=== PATIENT | female | born 1945 | race Caucasian/White ===

== ENCOUNTER 2016-11-12 09:40 | Outpatient (CLI) | payer MEDICARE, OTHER ==
[2016-11-12 10:34] LABS: ALT (SGPT) 15 U/L (0-55); AST (SGOT) 18 U/L (5-34); Albumin 3.7 g/dL (3.4-4.8); Alkaline Phosphatase 87 U/L (40-150); Bilirubin, Direct 0.2 mg/dL (0.1-0.3); Bilirubin, Total 0.5 mg/dL (0.2-1.2); Cardiac Risk 3.4 (Less than 4.5); Cholesterol 199 mg/dL (< 200 Desired); HDL Cholesterol 58 mg/dL (>60 Neg Risk); LDL Cholesterol, Calculated 110 mg/dL; Protein, Total 6.8 g/dL (5.8-8.1); Triglycerides 153 mg/dL (Less than 150)
== END 2016-11-12 09:41 | disposition home or self-care (01) ==
LOC: MADLAB 09:40
PROVIDERS: ATTEND Internal Medicine Cardiovascular Disease
DX: E78.00 Pure hypercholesterolemia, unspecified (principal)
CPT/HCPCS: 36415; 80061; 80076

== ENCOUNTER 2017-03-26 09:20 | Emergency (ER) | payer MEDICARE, OTHER ==
[2017-03-26 10:52] LABS: #Basophils 0.2 thou/uL (0.0-0.2); #Eosinphils 0.2 thou/uL (0.0-0.7); #Lymphocytes 2.8 thou/uL (1.20-3.40); #Monocytes 0.5 thou/uL (0.11-0.59); #Neutrophils 11.9 thou/uL (1.40-6.50); %Eosinophils 1.2 % (0.0-10.0); %Lymphocytes 17.9 % (21.0-51.0); %Monocytes 3.2 % (0.0-10.0); %Neutrophils 76.7 % (42.0-75.0); Hemoglobin 12.3 g/dL (12.0-16.0); Mean Corpuscular HGB CONC 32.5 g/dL (32.0-36.0); Mean Corpuscular Hemoglobin 29.2 pg (27.0-31.0); Mean Platelet Volume 8.8 fL (7.4-10.4); Platelet Count 259 thou/uL (130-400); RBC Distribution Width 13.5 % (11.5-14.5); Red Blood Cell (RBC) Count 4.22 mill/uL (4.20-5.40); White Blood Cell (WBC) Count 15.5 thou/uL (4.8-10.8)
--- NOTE | 2017-03-26 10:56 | CT ---
CT HEAD WITHOUT CONTRAST: Technique: Multiple axial tomograms were obtained through the head without IV enhancement. History: Dizziness, hypertension. FINDINGS: Ventricles have normal size and position. There is no evidence of intracranial mass or hemorrhage. N o evidence of infarct. Mucosal thickening and possible air fluid level in the left sphenoid air cell is noted. The paranasa l sinuses and mastoids otherwise show normal aeration. IMPRESSION: 1. No acute intracranial abnormality. 2. Mucosal thickening and question air fluid level in a left sphenoid air cell. POS: [facility]
[2017-03-26 10:59] LABS: Anion Gap 16 mmol/L (10-20); BUN (Urea Nitrogen) 11 mg/dL (9.8-20.1); Calc. Creatinine Clearance 0 mL/min (70-130); Calcium 8.4 mg/dL (7.8-10.44); Carbon Dioxide 25 mmol/L (23-31); Chloride 101 mmol/L (98-107); Estimated GFR-MDRD 79; Glucose 89 mg/dL (83-110); Potassium 3.7 mmol/L (3.5-5.1); Sodium 138 mmol/L (136-145)
[2017-03-26 11:13] LABS: CKMB 1.1 ng/mL (0-6.6); Troponin I Less than 0.010 ng/mL (< 0.028)
[2017-03-26 11:30] LABS: Bilirubin Negative (Negative); Blood, Urine Negative (Negative); Clarity Clear (Clear); Glucose, Urine (Dipstick) Negative (Negative); Leukocyte Negative (Negative); Nitrite Negative (Negative); Protein, Urine (Dipstick) Negative (Neg-Trace); Urobilinogen 0.2 mg/dL (0.2-1.0)
== END 2017-03-26 11:55 | disposition short-term general hospital (02) ==
LOC: MADERS 09:20
DX: R42 Dizziness and giddiness (principal); E78.5 Hyperlipidemia, unspecified; E78.00 Pure hypercholesterolemia, unspecified; I10 Essential (primary) hypertension; F17.210 Nicotine dependence, cigarettes, uncomplicated; Z79.82 Long term (current) use of aspirin; Z79.899 Other long term (current) drug therapy
CPT/HCPCS: 36415; 70450; 80048; 81003; 82553; 83735; 84443; 84484; 85025; 93005

== ENCOUNTER 2017-06-11 12:24 | Outpatient (CLI) | payer MEDICARE, OTHER ==
[2017-06-11 13:06] LABS: ALT (SGPT) 21 U/L (8-55); AST (SGOT) 18 U/L (5-34); Albumin 3.5 g/dL (3.4-4.8); Alkaline Phosphatase 123 U/L (40-150); Anion Gap 16 mmol/L (10-20); BUN (Urea Nitrogen) 8 mg/dL (9.8-20.1); Bilirubin, Total 0.3 mg/dL (0.2-1.2); Calc. Creatinine Clearance 0 mL/min (70-130); Calcium 9.2 mg/dL (7.8-10.44); Carbon Dioxide 24 mmol/L (23-31); Cardiac Risk 3.7 (Less than 4.5); Chloride 99 mmol/L (98-107); Cholesterol 176 mg/dl (< 200 Desired); Estimated GFR-MDRD 77; Globulin 3.8 g/dL (2.4-3.5); Glucose 104 mg/dL (83-110); HDL Cholesterol 48 mg/dL (>60 Neg Risk); LDL Cholesterol, Calculated 109 mg/dL; Potassium 3.7 mmol/L (3.5-5.1); Protein, Total 7.3 g/dL (6.0-8.3); Sodium 135 mmol/L (136-145); Triglycerides 94 mg/dL (Less than 150)
[2017-06-11 13:15] LABS: #Basophils 0.2 thou/uL (0.0-0.2); #Eosinphils 0.2 thou/uL (0.0-0.7); #Lymphocytes 2.6 thou/uL (1.20-3.40); #Monocytes 0.5 thou/uL (0.11-0.59); #Neutrophils 6.1 thou/uL (1.40-6.50); %Basophils 1.9 % (0.0-1.0); %Eosinophils 2.2 % (0.0-10.0); %Lymphocytes 26.8 % (21.0-51.0); %Monocytes 5.4 % (0.0-10.0); %Neutrophils 63.6 % (42.0-75.0); Hemoglobin 12.6 g/dL (12.0-16.0); Mean Corpuscular HGB CONC 32.6 g/dL (32.0-36.0); Mean Corpuscular Hemoglobin 29.1 pg (27.0-31.0); Mean Corpuscular Volume 89.4 fl (81.0-99.0); Mean Platelet Volume 8.4 fL (7.4-10.4); Platelet Count 370 thou/uL (130-400); RBC Distribution Width 11.8 % (11.5-14.5); Red Blood Cell (RBC) Count 4.34 mill/uL (4.20-5.40); White Blood Cell (WBC) Count 9.6 thou/uL (4.8-10.8)
== END 2017-06-11 12:25 | disposition home or self-care (01) ==
LOC: MADLABBHPM 12:24
PROVIDERS: ATTEND Family Medicine
DX: R53.83 Other fatigue (principal)
CPT/HCPCS: 80053; 80061; 84443; 85025

== ENCOUNTER 2017-08-28 21:04 | Emergency (ER) | payer MEDICARE, OTHER ==
[2017-08-28] MEDS ORDERED: Magnesium Sulfate 2 GM/NS 0.9% 50 ML BAG ONE (21:22)
[2017-08-28] MEDS ORDERED: methylPREDNISolone Sod Succ/PF 125 MG/2 ML VIAL ONE (21:22)
--- NOTE | 2017-08-28 21:23 | RAD ---
CHEST ONE VIEW 08/28/17 HISTORY: Dyspnea. COMPARISON: 08/22/17 FINDINGS: The cardiac silhouette is magnified by projection. Pulmonary vasculature is unremarkable. Mediastinum is midline. There is no lobar consolidation or evidence of pneumothorax. IMPRESSION: No active cardiopulmonary abnormalities are demonstrated. POS: [facility]
[2017-08-28 22:51] LABS: #Basophils 0.1 thou/uL (0.0-0.2); #Eosinphils 0.1 thou/uL (0.0-0.7); #Lymphocytes 4.1 thou/uL (1.20-3.40); #Monocytes 1.1 thou/uL (0.11-0.59); #Neutrophils 9.7 thou/uL (1.40-6.50); %Basophils 0.6 % (0.0-1.0); %Eosinophils 0.4 % (0.0-10.0); %Lymphocytes 27.4 % (21.0-51.0); %Neutrophils 64.7 % (42.0-75.0); Hemoglobin 12.9 g/dL (12.0-16.0); Mean Corpuscular HGB CONC 33.7 g/dL (32.0-36.0); Mean Corpuscular Hemoglobin 30.2 pg (27.0-31.0); Mean Corpuscular Volume 89.6 fl (81.0-99.0); Mean Platelet Volume 8.8 fL (7.4-10.4); Platelet Count 308 thou/uL (130-400); RBC Distribution Width 13.1 % (11.5-14.5); Red Blood Cell (RBC) Count 4.27 mill/uL (4.20-5.40)
[2017-08-28 23:00] LABS: ALT (SGPT) 39 U/L (8-55); AST (SGOT) 32 U/L (5-34); Albumin 3.6 g/dL (3.4-4.8); Alkaline Phosphatase 98 U/L (40-150); Anion Gap 15 mmol/L (10-20); BUN (Urea Nitrogen) 11 mg/dL (9.8-20.1); Bilirubin, Total 0.4 mg/dL (0.2-1.2); Calc. Creatinine Clearance 0 mL/min (70-130); Carbon Dioxide 27 mmol/L (23-31); Chloride 99 mmol/L (98-107); Estimated GFR-MDRD 88; Globulin 3.6 g/dL (2.4-3.5); Glucose 120 mg/dL (83-110); Potassium 3.2 mmol/L (3.5-5.1); Protein, Total 7.2 g/dL (6.0-8.3); Sodium 138 mmol/L (136-145)
[2017-08-28 23:06] LABS: Troponin I Less than 0.010 ng/mL (< 0.028)
== END 2017-08-29 00:57 | disposition short-term general hospital (02) ==
LOC: MADERS 21:04
DX: J44.1 Chronic obstructive pulmonary disease with (acute) exacerbation (principal); E78.5 Hyperlipidemia, unspecified; I10 Essential (primary) hypertension; F17.210 Nicotine dependence, cigarettes, uncomplicated; Z79.82 Long term (current) use of aspirin; Z79.899 Other long term (current) drug therapy
CPT/HCPCS: 36415; 71010; 80053; 82553; 83880; 84484; 85025; 93005; 94640; 94760; 96365; 96366; 96375; J1956; J2930; J3475; J7620

== ENCOUNTER 2017-08-31 11:19 | Emergency (ER) | payer MEDICARE, OTHER | END 2017-08-31 12:03 | disposition home or self-care (01) | LOC: MADERS 11:19 | DX: J44.9 Chronic obstructive pulmonary disease, unspecified (principal); R79.89 Other specified abnormal findings of blood chemistry; E78.5 Hyperlipidemia, unspecified; I10 Essential (primary) hypertension; F41.9 Anxiety disorder, unspecified; F32.9 Major depressive disorder, single episode, unspecified; Z87.891 Personal history of nicotine dependence; Z79.82 Long term (current) use of aspirin; Z79.899 Other long term (current) drug therapy | CPT/HCPCS: 99284 ==

== ENCOUNTER 2017-09-29 20:21 | Emergency (ER) | payer MEDICARE, OTHER ==
[2017-09-29] MEDS ORDERED: Morphine 4 MG/ML VIAL ONE (21:09)
[2017-09-29 21:30] LABS: Bilirubin Negative (Negative); Blood, Urine Moderate (Negative); Glucose, Urine (Dipstick) Negative (Negative); Leukocyte Small (Negative); Nitrite Negative (Negative); Protein, Urine (Dipstick) Negative (Neg-Trace); Urobilinogen 0.2 mg/dL (0.2-1.0)
[2017-09-29 21:38] LABS: Bacteria/HPF 3+ HPF (None Seen); Clarity Hazy (Clear); Renal Epithelial 0-3 HPF (0-3); Transitional Epithelial 0-3 HPF (0-3)
--- NOTE | 2017-09-29 21:46 | CT ---
CT ABDOMEN NONCONTRAST CT PELVIS NONCONTRAST: (urolithiasis protocol) DATE: 09-29-17 TIME: 8:51 p.m. HISTORY: 72-year-old female with generalized abdominal pain. COMPARISON: None TECHNIQUE: IV injection of iodinated contrast media: none Oral contrast media: none FINDINGS: Other than for urolithiasis, the lack of IV and oral contrast limits the evaluation. At the posteromedial base of the left lower lobe, there is a 0.6 x 0.6 x 0.7 cm noncalcified pulmonar y nodule. There is diffusely low attenuation of the mckenzie of the splenic flexure, descending colon, m ost of the sigmoid colon, and rectum. There are air filled portions of the sigmoid colon that have no rmal, thin mckenzie. Therefore, it is doubtful that this represent colitis. Recommend clinical correlati on (is there recent diarrhea?). The sigmoid colon is redundant. No signs of acute colonic diverticuli tis. There is an approximately 8 x 5 x 3 cm collection of gas in the right lower quadrant anterior pe ritoneal cavity with no perceptible mckenzie. This almost has the appearance of extraluminal air, but it is probably within a distended portion of a very tortuous sigmoid colon. There is no surrounding fat stranding. There are no other regions of potentially extraluminal gas. There are no renal, ureteral, or bladder calculi. Urinary bladder is collapsed. No small bowel dilati on. No ascites. No pleural effusion. Heavy atherosclerotic calcification of non-aneurysmal abdominal aorta. Within limitations of a noncontrast scan, no gross abnormality is identified involving the kid neys, adrenals, pancreas, liver or spleen. Uterus is absent. The appendix is not identified with cert ainty. IMPRESSION: 1. A large collection of gas in the right lower quadrant of the abdominal cavity. The appearance is u nusual and probably represents intraluminal gas within a distended loop of very redundant sigmoid col on rather than representing extraluminal gas collection. 2. There is questionable edema within collapsed loops of the left colon, questionable for colitis. 3. No urolithiasis or obstructive uropathy. 4. Left lower lobe pulmonary nodule. Recommend six month follow up CT of the chest. LUIS ANTONIO Spivey POS: [facility]
[2017-09-29] MEDS ORDERED: Sulfameth/Trimethoprim DS 800-160mg TAB ONE (21:47)
== END 2017-09-29 22:07 | disposition home or self-care (01) ==
LOC: MADERS 20:21
DX: N39.0 Urinary tract infection, site not specified (principal); E78.5 Hyperlipidemia, unspecified; I10 Essential (primary) hypertension; J42 Unspecified chronic bronchitis; F17.210 Nicotine dependence, cigarettes, uncomplicated; F41.9 Anxiety disorder, unspecified; F32.9 Major depressive disorder, single episode, unspecified
CPT/HCPCS: 74176; 81003; 81015; 96374; J2270

== ENCOUNTER 2017-11-19 19:27 | Emergency (ER) | payer MEDICARE, OTHER ==
[~2017-11-19 19:27] MED LIST: Sodium Chloride 0.9% 100 ML BAG ONE
[2017-11-19] MEDS ORDERED: Magnesium Sulfate 2 GM/NS 0.9% 50 ML BAG ONE (20:57)
[2017-11-19] MEDS ORDERED: Dexamethasone 10 MG/ML VIAL ONE (20:57)
[2017-11-19] MEDS ORDERED: methylPREDNISolone Sod Succ/PF 125 MG/2 ML VIAL ONE (20:57)
[2017-11-19] MEDS ORDERED: Azithromycin 250 MG TAB ONE (20:57)
[2017-11-19] MEDS ORDERED: Benzonatate 100 MG CAP ONE (20:57)
[2017-11-19 21:13] LABS: Prothrombin Time 13.7 SEC (12.0-14.7)
[2017-11-19 21:14] LABS: PTT 32.1 SEC (22.9-36.1)
--- NOTE | 2017-11-19 21:17 | RAD ---
PORTABLE CHEST: 11/19/17 HISTORY: Dyspnea. COMPARISON: 08/28/17. The lungs are clear. The heart and mediastinum unremarkable. IMPRESSION: No acute finding or interval change noted. POS: [facility]
[2017-11-19 21:22] LABS: Eosinophils 15 % (0-10); Lymphocytes 23 % (21-51); MDiff Complete? YES; Mean Corpuscular HGB CONC 32.3 g/dL (32.0-36.0); Mean Corpuscular Hemoglobin 29.8 pg (27.0-31.0); Mean Corpuscular Volume 92.1 fl (81.0-99.0); Mean Platelet Volume 9.1 fL (7.4-10.4); Microcytosis SLIGHT = 6-15 cells (100X) (0-5/hpf); Monocytes 5 % (0-10); Neutrophil 53 % (42-75); PLT Morphology Comment Appears Adequate; Platelet Count 284 thou/uL (130-400); RBC Morphology Abnormal; Reactive Lymphocytes 3 % (0-10); Red Blood Cell (RBC) Count 4.38 mill/uL (4.20-5.40); White Blood Cell (WBC) Count 11.6 thou/uL (4.8-10.8)
[2017-11-19 21:25] LABS: ALT (SGPT) 16 U/L (8-55); AST (SGOT) 19 U/L (5-34); Albumin 3.5 g/dL (3.4-4.8); Alkaline Phosphatase 84 U/L (40-150); Anion Gap 16 mmol/L (10-20); BUN (Urea Nitrogen) 12 mg/dL (9.8-20.1); Bilirubin, Total 0.3 mg/dL (0.2-1.2); CK (CPK) 51 U/L (29-168); Calc. Creatinine Clearance 0 mL/min (70-130); Calcium 8.8 mg/dL (7.8-10.44); Carbon Dioxide 24 mmol/L (23-31); Chloride 103 mmol/L (98-107); Estimated GFR-MDRD 76; Globulin 3.4 g/dL (2.4-3.5); Glucose 102 mg/dL (83-110); Potassium 3.9 mmol/L (3.5-5.1); Protein, Total 6.9 g/dL (6.0-8.3); Sodium 139 mmol/L (136-145)
[2017-11-19 21:26] LABS: CKMB 1.3 ng/mL (0-6.6); Troponin I 0.018 ng/mL (< 0.028)
== END 2017-11-19 22:47 | disposition home or self-care (01) ==
LOC: MADERS 19:27
DX: J44.1 Chronic obstructive pulmonary disease with (acute) exacerbation (principal); E78.5 Hyperlipidemia, unspecified; F41.9 Anxiety disorder, unspecified; F32.9 Major depressive disorder, single episode, unspecified
CPT/HCPCS: 71045; 80053; 82553; 83880; 84484; 85025; 85610; 85730; 87081; 87430; 93005; 94640; 96365; 96367; 96375; J1100; J2930; J3475; J7050; J7620

== ENCOUNTER 2018-02-24 22:23 | Emergency (ER) | payer MEDICARE, OTHER ==
[2018-02-24] MEDS ORDERED: predniSONE 20 MG TAB ONE (23:13)
[2018-02-25 00:13] LABS: #Basophils 0.2 thou/uL (0.0-0.2); #Eosinphils 1.4 thou/uL (0.0-0.7); #Lymphocytes 3.5 thou/uL (1.20-3.40); #Monocytes 0.6 thou/uL (0.11-0.59); #Neutrophils 7.4 thou/uL (1.40-6.50); %Basophils 1.8 % (0.0-1.0); %Eosinophils 10.6 % (0.0-10.0); %Lymphocytes 26.7 % (21.0-51.0); %Monocytes 4.8 % (0.0-10.0); %Neutrophils 56.1 % (42.0-75.0); Mean Corpuscular HGB CONC 33.5 g/dL (32.0-36.0); Mean Corpuscular Hemoglobin 29.3 pg (27.0-31.0); Mean Corpuscular Volume 87.5 fl (81.0-99.0); Mean Platelet Volume 7.6 fL (7.4-10.4); Platelet Count 263 thou/uL (130-400); RBC Distribution Width 12.3 % (11.5-14.5); Red Blood Cell (RBC) Count 4.45 mill/uL (4.20-5.40); White Blood Cell (WBC) Count 13.2 thou/uL (4.8-10.8)
[2018-02-25 00:20] LABS: ALT (SGPT) 12 U/L (8-55); AST (SGOT) 18 U/L (5-34); Albumin 3.7 g/dL (3.4-4.8); Alkaline Phosphatase 87 U/L (40-150); Anion Gap 16 mmol/L (10-20); BUN (Urea Nitrogen) 8 mg/dL (9.8-20.1); Bilirubin, Total 0.2 mg/dL (0.2-1.2); Calc. Creatinine Clearance 0 mL/min (70-130); Calcium 9.6 mg/dL (7.8-10.44); Carbon Dioxide 26 mmol/L (23-31); Chloride 101 mmol/L (98-107); Estimated GFR-MDRD 76; Globulin 3.2 g/dL (2.4-3.5); Glucose 104 mg/dL (83-110); Protein, Total 6.9 g/dL (6.0-8.3); Sodium 139 mmol/L (136-145)
[2018-02-25 01:42] LABS: pH (venous) 7.39 (7.35-7.45)
[2018-02-25 01:43] LABS: Base Excess 4.7 mEq/L (-2 - +2); Hemoglobin (Hb) 13.6 g/dL (11.7-16.1)
--- NOTE | 2018-02-25 07:51 | RAD ---
AP VIEW OF CHEST: Date: 02/24/18 HISTORY: Shortness of breath. COMPARISON: Previous exam from 11/19/17. FINDINGS: AP view of chest demonstrates EKG leads seen over the chest. There is an electronic device over the l eft chest. The lungs are well aerated. Mild pulmonary vascular congestion seen. No evidence of effusi ons, pneumonia, or pneumothorax seen. IMPRESSION: Unremarkable AP view of chest. POS: [facility]
== END 2018-02-25 02:40 | disposition short-term general hospital (02) ==
LOC: MADERS 22:23
DX: J44.1 Chronic obstructive pulmonary disease with (acute) exacerbation (principal); I25.10 Atherosclerotic heart disease of native coronary artery without angina pectoris; I10 Essential (primary) hypertension; E78.5 Hyperlipidemia, unspecified; F32.9 Major depressive disorder, single episode, unspecified; F41.9 Anxiety disorder, unspecified; F17.210 Nicotine dependence, cigarettes, uncomplicated
CPT/HCPCS: 36415; 71045; 80053; 82805; 85025; J7506; J7620

== ENCOUNTER 2018-07-22 19:33 | Emergency (ER) | payer MEDICARE, OTHER ==
[2018-07-22 20:10] LABS: #Basophils 0.2 thou/uL (0.0-0.2); #Eosinphils 1.6 thou/uL (0.0-0.7); #Lymphocytes 2.6 thou/uL (1.20-3.40); #Monocytes 0.5 thou/uL (0.11-0.59); #Neutrophils 5.8 thou/uL (1.40-6.50); %Basophils 1.8 % (0.0-1.0); %Eosinophils 15.4 % (0.0-10.0); %Neutrophils 53.9 % (42.0-75.0); Hemoglobin 13.1 g/dL (12.0-16.0); Mean Corpuscular HGB CONC 32.7 g/dL (32.0-36.0); Mean Corpuscular Hemoglobin 29.1 pg (27.0-31.0); Mean Corpuscular Volume 89.2 fL (78.0-98.0); Mean Platelet Volume 8.3 fL (7.4-10.4); Platelet Count 323 thou/uL (130-400); RBC Distribution Width 12.4 % (11.5-14.5); Red Blood Cell (RBC) Count 4.49 mill/uL (4.20-5.40); White Blood Cell (WBC) Count 10.7 thou/uL (4.8-10.8)
[2018-07-22 20:16] LABS: Prothrombin Time 12.9 SEC (12.0-14.7)
--- NOTE | 2018-07-22 20:20 | RAD ---
PA AND LATERAL VIEWS OF THE CHEST: 07/22/18 HISTORY: COPD, shortness of breath. FINDINGS: Comparison is made with exam of 07/16/18. The heart size is normal. The lungs are well expanded without lobar consolidation, pneumothoraces or pleural effusions. There are degenerative changes in the spine. IMPRESSION: No acute process. POS: [facility]
[2018-07-22 20:28] LABS: ALT (SGPT) 17 U/L (8-55); AST (SGOT) 21 U/L (5-34); Albumin 3.9 g/dL (3.4-4.8); Alkaline Phosphatase 95 U/L (40-150); Anion Gap 15 mmol/L (10-20); BUN (Urea Nitrogen) 9 mg/dL (9.8-20.1); Bilirubin, Total 0.5 mg/dL (0.2-1.2); Calc. Creatinine Clearance 0 mL/min (70-130); Calcium 9.4 mg/dL (7.8-10.44); Carbon Dioxide 25 mmol/L (23-31); Chloride 104 mmol/L (98-107); Estimated GFR-MDRD 69; Globulin 3.4 g/dL (2.4-3.5); Glucose 87 mg/dL (83-110); Potassium 3.7 mmol/L (3.5-5.1); Protein, Total 7.3 g/dL (6.0-8.3); Sodium 140 mmol/L (136-145)
[2018-07-22] MEDS ORDERED: methylPREDNISolone Sod Succ/PF 125 MG/2 ML VIAL ONE (21:22)
[2018-07-22] MEDS ORDERED: Azithromycin 250 MG TAB ONE (21:22)
[2018-07-22] MEDS ORDERED: Ondansetron HCl/PF 4 MG/2 ML Vial ONE (21:29)
== END 2018-07-22 23:12 | disposition short-term general hospital (02) ==
LOC: MADERS 19:33
DX: J44.1 Chronic obstructive pulmonary disease with (acute) exacerbation (principal); I25.10 Atherosclerotic heart disease of native coronary artery without angina pectoris; I10 Essential (primary) hypertension; F32.9 Major depressive disorder, single episode, unspecified; F41.9 Anxiety disorder, unspecified; F17.210 Nicotine dependence, cigarettes, uncomplicated; E78.5 Hyperlipidemia, unspecified; Z79.899 Other long term (current) drug therapy; Z79.01 Long term (current) use of anticoagulants
CPT/HCPCS: 71046; 80053; 83880; 84484; 85025; 85610; 93005; 96374; 96375; J2405; J2930; J7620

== ENCOUNTER 2019-10-20 10:46 | Outpatient (CLI) | payer MEDICARE, OTHER ==
--- NOTE | 2019-10-20 11:11 | RAD ---
EXAM: Two views chest PROVIDED CLINICAL HISTORY: Dyspnea COMPARISON: 05/28/2019 FINDINGS: Cardiac and mediastinal silhouette is unchanged in appearance. Lungs appear free of significant opaci ty. No pleural fluid or pneumothorax apparent. IMPRESSION: No evidence for an acute cardiopulmonary process.
== END 2019-10-20 10:47 | disposition home or self-care (01) ==
LOC: MADRAD 10:46
PROVIDERS: ATTEND Internal Medicine Critical Care Medicine
DX: R06.00 Dyspnea, unspecified (principal)
CPT/HCPCS: 71046

== ENCOUNTER 2020-11-22 12:13 | Outpatient (CLI) | payer MEDICARE, OTHER ==
--- NOTE | 2020-11-22 12:46 | RAD ---
XR Chest Pa Lat STANDARD History: Hypertension Comparison: Radiograph October 20, 2019 Findings: Lungs are clear. No pneumothorax or effusion. Cardiac silhouette and mediastinal contours a re within normal limits. No acute osseous abnormality. Impression: No acute intrathoracic abnormality.
[2020-11-22 13:43] LABS: #Basophils 0.1 thou/uL (0.0-0.2); #Lymphocytes 1.2 thou/uL (1.20-3.40); #Monocytes 0.5 thou/uL (0.11-0.59); #Neutrophils 13.5 thou/uL (1.40-6.50); %Basophils 0.6 % (0.0-1.0); %Eosinophils 0.2 % (0.0-10.0); %Lymphocytes 7.7 % (21.0-51.0); %Neutrophils 88.5 % (42.0-75.0); Hemoglobin 12.5 g/dL (12.0-16.0); Mean Corpuscular HGB CONC 32.1 g/dL (32.0-36.0); Mean Corpuscular Hemoglobin 28.4 pg (27.0-31.0); Mean Corpuscular Volume 88.2 fL (78.0-98.0); Mean Platelet Volume 8.3 fL (7.4-10.4); Platelet Count 292 thou/uL (130-400); RBC Distribution Width 13.4 % (11.5-14.5); Red Blood Cell (RBC) Count 4.39 mill/uL (4.20-5.40); White Blood Cell (WBC) Count 15.3 thou/uL (4.8-10.8)
[2020-11-22 14:05] LABS: ALT (SGPT) 16 U/L (8-55); AST (SGOT) 18 U/L (5-34); Albumin 3.7 g/dL (3.4-4.8); Alkaline Phosphatase 79 U/L (40-110); Anion Gap 16 mmol/L (10-20); BUN (Urea Nitrogen) 12 mg/dL (9.8-20.1); Bilirubin, Total 0.4 mg/dL (0.2-1.2); Calc. Creatinine Clearance 0 mL/min (70-130); Calcium 8.5 mg/dL (7.8-10.44); Carbon Dioxide 26 mmol/L (23-31); Cardiac Risk 1.6 (Less than 4.5); Chloride 105 mmol/L (98-107); Cholesterol 157 mg/dl (< 200 Desired); Globulin 2.2 g/dL (2.4-3.5); Glucose 92 mg/dL (83-110); HDL Cholesterol 96 mg/dL (>60 Neg Risk); LDL Cholesterol, Calculated 45 mg/dL; Potassium 3.9 mmol/L (3.5-5.1); Protein, Total 5.9 g/dL (5.8-8.1); Sodium 143 mmol/L (136-145); Triglycerides 80 mg/dL (Less than 150)
[2020-11-22 17:02] LABS: Hemoglobin A1c 5.6 % (4.0-6.0)
== END 2020-11-22 12:14 | disposition home or self-care (01) ==
LOC: MADRAD 12:13
PROVIDERS: ATTEND Family Medicine
DX: I10 Essential (primary) hypertension (principal); E78.2 Mixed hyperlipidemia; E66.9 Obesity, unspecified
CPT/HCPCS: 36415; 71046; 80053; 80061; 83036; 84443; 85025

== ENCOUNTER 2021-06-22 07:46 | Emergency (ER) | payer MEDICARE, OTHER ==
[2021-06-22] MEDS ORDERED: Boostrix 0.5 ML (Tdap) VIAL ONE (09:22)
[2021-06-22] MEDS ORDERED: Acetaminophen 325 MG TAB ONE (09:22)
[2021-06-22] MEDS ORDERED: Fentanyl 100 MCG/2 ML VIAL ONE (09:22)
[2021-06-22 09:31] LABS: Hemoglobin 11.6 g/dL (12.0-16.0); Mean Corpuscular HGB CONC 31.6 g/dL (32.0-36.0); Mean Corpuscular Hemoglobin 28.2 pg (27.0-31.0); Mean Corpuscular Volume 89.3 fL (78.0-98.0); Mean Platelet Volume 8.4 fL (7.4-10.4); Platelet Count 305 thou/uL (130-400); RBC Distribution Width 14.3 % (11.5-14.5); Red Blood Cell (RBC) Count 4.09 mill/uL (4.20-5.40)
[2021-06-22 09:39] LABS: ALT (SGPT) 19 U/L (8-55); AST (SGOT) 19 U/L (5-34); Albumin 3.5 g/dL (3.4-4.8); Alkaline Phosphatase 91 U/L (40-110); Anion Gap 13 mmol/L (10-20); BUN (Urea Nitrogen) 11 mg/dL (9.8-20.1); Bilirubin, Total 0.3 mg/dL (0.2-1.2); CK (CPK) 54 U/L (29-168); Calc. Creatinine Clearance 0 mL/min (70-130); Calcium 9.3 mg/dL (7.8-10.44); Carbon Dioxide 26 mmol/L (23-31); Chloride 102 mmol/L (98-107); Globulin 2.8 g/dL (2.4-3.5); Glucose 133 mg/dL (83-110); Protein, Total 6.3 g/dL (5.8-8.1); Sodium 137 mmol/L (136-145)
[2021-06-22 09:46] LABS: Manual Diff?? YES
[2021-06-22 09:47] LABS: Anisocytosis SLIGHT = 6-15 cells (100X) (0-5/hpf); Band 3 % (5-11); Eosinophils 1 % (0-10); Lymphocytes 10 % (21-51); MDiff Complete? YES; Monocytes 4 % (0-10); Neutrophil 82 % (42-75); Platelet Morphology Comment Appears Adequate
[2021-06-22] MEDS ORDERED: Albuterol Sulfate 2.5 mg/0.5 ml Neb ONE (09:59)
[2021-06-22] MEDS ORDERED: Ipratropium Bromide 2.5 ml Neb ONE (09:59)
[2021-06-22] MEDS ORDERED: Nitroglycerin 0.4 MG TAB 1 EACH ONE (11:55)
[2021-06-22] MEDS ORDERED: Aspirin Chewable 81 MG TAB ONE (11:55)
[2021-06-22 12:58] LABS: Bilirubin Negative (Negative); Blood, Urine Small (Negative); Clarity Clear (Clear); Glucose, Urine (Dipstick) Negative (Negative); Ketone, Urine Negative (Negative); Leukocyte Negative (Negative); Nitrite Negative (Negative); Protein, Urine (Dipstick) 30 mg/dL (Neg-Trace); Urobilinogen 0.2 mg/dL (Less than 2)
[2021-06-22 12:59] LABS: Bacteria/HPF 1+ HPF (None Seen); WBC/HPF 0-3 HPF (0-3)
== END 2021-06-22 13:45 | disposition home or self-care (01) ==
LOC: MADERS 07:46
DX: S51.812A Laceration without foreign body of left forearm, initial encounter (principal); J44.1 Chronic obstructive pulmonary disease with (acute) exacerbation; R60.0 Localized edema; I25.10 Atherosclerotic heart disease of native coronary artery without angina pectoris; I10 Essential (primary) hypertension; E78.5 Hyperlipidemia, unspecified; E78.00 Pure hypercholesterolemia, unspecified; Z87.891 Personal history of nicotine dependence; Z79.82 Long term (current) use of aspirin; Z79.899 Other long term (current) drug therapy; Z23 Encounter for immunization; W19.XXXA Unspecified fall, initial encounter
CPT/HCPCS: 70450; 71045; 72125; 80053; 81003; 81015; 82550; 83880; 84484; 85025; 90471; 90715; 93005; 96374; J3010; J7611

== ENCOUNTER 2021-06-30 20:53 | Emergency (ER) | payer MEDICARE, OTHER ==
[2021-06-30] MEDS ORDERED: cefTRIAXone\\ROCEPHIN 1 GM VIAL ONE (21:49)
[2021-06-30] MEDS ORDERED: Sodium Chloride 0.9% 1,000 ML ONE ×2 (21:49→23:17)
[2021-06-30] MEDS ORDERED: Sodium Chloride 0.9% 100 ML ONE ×2 (21:49→23:17)
[2021-06-30 22:20] LABS: #Basophils 0.1 thou/uL (0.0-0.2); #Lymphocytes 0.8 thou/uL (1.20-3.40); #Monocytes 0.6 thou/uL (0.11-0.59); #Neutrophils 13.4 thou/uL (1.40-6.50); %Basophils 0.6 % (0.0-1.0); %Lymphocytes 5.4 % (21.0-51.0); %Monocytes 3.8 % (0.0-10.0); %Neutrophils 90.1 % (42.0-75.0); Hemoglobin 11.6 g/dL (12.0-16.0); Mean Corpuscular HGB CONC 31.7 g/dL (32.0-36.0); Mean Corpuscular Hemoglobin 27.7 pg (27.0-31.0); Mean Corpuscular Volume 87.4 fL (78.0-98.0); Mean Platelet Volume 6.4 fL (7.4-10.4); Platelet Count 493 thou/uL (130-400); RBC Distribution Width 13.1 % (11.5-14.5); Red Blood Cell (RBC) Count 4.17 mill/uL (4.20-5.40); White Blood Cell (WBC) Count 14.8 thou/uL (4.8-10.8)
[2021-06-30 22:29] LABS: ALT (SGPT) 13 U/L (8-55); AST (SGOT) 13 U/L (5-34); Albumin 3.5 g/dL (3.4-4.8); Alkaline Phosphatase 100 U/L (40-110); Anion Gap 18 mmol/L (10-20); BUN (Urea Nitrogen) 45 mg/dL (9.8-20.1); Bilirubin, Total 0.2 mg/dL (0.2-1.2); CK (CPK) 24 U/L (29-168); Calc. Creatinine Clearance 0 mL/min (70-130); Calcium 9.6 mg/dL (7.8-10.44); Carbon Dioxide 31 mmol/L (23-31); Chloride 89 mmol/L (98-107); Globulin 2.2 g/dL (2.4-3.5); Glucose 137 mg/dL (83-110); Lipase 31 U/L (8-78); Potassium 3.5 mmol/L (3.5-5.1); Protein, Total 5.7 g/dL (5.8-8.1); Sodium 134 mmol/L (136-145)
[2021-06-30] MEDS ORDERED: Doxycycline Hyclate 100 MG VIAL ONE (23:14)
[2021-07-01 07:23] LABS: Bilirubin Negative (Negative); Blood, Urine Trace (Negative); Clarity Clear (Clear); Glucose, Urine (Dipstick) Negative (Negative); Ketone, Urine Negative (Negative); Leukocyte Moderate (Negative); Nitrite Negative (Negative); Protein, Urine (Dipstick) Negative (Neg-Trace); Urobilinogen 0.2 mg/dL (Less than 2)
[2021-07-01 07:26] LABS: Bacteria/HPF None Seen HPF (None Seen); RBC/HPF 0-3 HPF (0-3); Squamous Epithelial 0-3 HPF (0-3)
== END 2021-07-01 08:02 | disposition home or self-care (01) ==
LOC: MADERS 20:53
DX: A41.9 Sepsis, unspecified organism (principal); J44.1 Chronic obstructive pulmonary disease with (acute) exacerbation; N30.00 Acute cystitis without hematuria; I10 Essential (primary) hypertension; I25.10 Atherosclerotic heart disease of native coronary artery without angina pectoris; E78.5 Hyperlipidemia, unspecified; E78.00 Pure hypercholesterolemia, unspecified; F17.210 Nicotine dependence, cigarettes, uncomplicated; Z79.82 Long term (current) use of aspirin; Z79.52 Long term (current) use of systemic steroids; Z79.899 Other long term (current) drug therapy
CPT/HCPCS: 71045; 71250; 80053; 81003; 81015; 82550; 83605; 83690; 84443; 84484; 85025; 87040; 87086; 93005; 96365; 96367; J0696; J3490; J7050; J7620

== ENCOUNTER 2021-08-08 11:28 | Outpatient (CLI) | payer MEDICARE, OTHER | END 2021-08-08 11:29 | disposition home or self-care (01) | LOC: MADRAD 11:28 | PROVIDERS: ATTEND Family Medicine | DX: Z13.31 Encounter for screening for depression (principal); S22.31XA Fracture of one rib, right side, initial encounter for closed fracture | CPT/HCPCS: 71046 ==

== ENCOUNTER 2021-08-09 12:14 | Outpatient (CLI) | payer MEDICARE, OTHER | END 2021-08-09 12:15 | disposition home or self-care (01) | LOC: MADLAB 12:14 | PROVIDERS: ATTEND Family Medicine | DX: M54.6 Pain in thoracic spine (principal) | CPT/HCPCS: 72070; 72100 ==

== ENCOUNTER 2021-11-07 11:23 | Outpatient (CLI) | payer MEDICARE, OTHER | END 2021-11-07 11:24 | disposition home or self-care (01) | LOC: MADLAB 11:23 → MADRAD 11:24 | PROVIDERS: ATTEND Family Medicine | DX: M54.9 Dorsalgia, unspecified (principal); M47.816 Spondylosis without myelopathy or radiculopathy, lumbar region; G95.20 Unspecified cord compression | CPT/HCPCS: 72100 ==

== ENCOUNTER 2021-11-17 05:33 | Emergency (ER) | payer MEDICARE, OTHER ==
[2021-11-17 05:59] LABS: #Basophils 0.1 thou/uL (0.0-0.2); #Lymphocytes 1.8 thou/uL (1.20-3.40); #Monocytes 0.9 thou/uL (0.11-0.59); #Neutrophils 10.1 thou/uL (1.40-6.50); %Basophils 0.9 % (0.0-1.0); %Monocytes 6.7 % (0.0-10.0); %Neutrophils 78.5 % (42.0-75.0); Hemoglobin 12.6 g/dL (12.0-16.0); Mean Corpuscular HGB CONC 31.7 g/dL (32.0-36.0); Mean Corpuscular Hemoglobin 26.9 pg (27.0-31.0); Mean Corpuscular Volume 84.9 fL (78.0-98.0); Mean Platelet Volume 7.5 fL (7.4-10.4); Platelet Count 337 thou/uL (130-400); RBC Distribution Width 14.5 % (11.5-14.5); Red Blood Cell (RBC) Count 4.69 mill/uL (4.20-5.40); White Blood Cell (WBC) Count 12.9 thou/uL (4.8-10.8)
[2021-11-17 06:18] LABS: Magnesium 1.8 mg/dL (1.6-2.6)
[2021-11-17 06:20] LABS: ALT (SGPT) Less than 7 U/L (8-55); AST (SGOT) 17 U/L (5-34); Albumin 3.4 g/dL (3.4-4.8); Alkaline Phosphatase 106 U/L (40-110); Anion Gap 15 mmol/L (10-20); BUN (Urea Nitrogen) 9 mg/dL (9.8-20.1); Bilirubin, Total 0.5 mg/dL (0.2-1.2); Calc. Creatinine Clearance 0 mL/min (70-130); Carbon Dioxide 24 mmol/L (23-31); Chloride 101 mmol/L (98-107); Globulin 2.8 g/dL (2.4-3.5); Glucose 114 mg/dL (83-110); Potassium 3.3 mmol/L (3.5-5.1); Protein, Total 6.2 g/dL (5.8-8.1); Sodium 137 mmol/L (136-145)
[2021-11-17] MEDS ORDERED: HYDROcodone/Acetaminophen 5/325 mg Tablet ONE (06:35)
[2021-11-17] MEDS ORDERED: Potassium Chloride 10 MEQ TAB ONE (06:36)
== END 2021-11-17 07:42 | disposition home or self-care (01) ==
LOC: MADERS 05:33
DX: J44.1 Chronic obstructive pulmonary disease with (acute) exacerbation (principal); E87.6 Hypokalemia; R00.0 Tachycardia, unspecified; I10 Essential (primary) hypertension; I25.10 Atherosclerotic heart disease of native coronary artery without angina pectoris; E78.5 Hyperlipidemia, unspecified; E78.00 Pure hypercholesterolemia, unspecified; Z76.0 Encounter for issue of repeat prescription; Z87.891 Personal history of nicotine dependence; Z79.82 Long term (current) use of aspirin; Z79.899 Other long term (current) drug therapy
CPT/HCPCS: 71045; 80053; 83735; 83880; 84484; 85025; 93005

== ENCOUNTER → 2022-10-22 | Emergency (ER) | payer MEDICARE, OTHER ==
[~2022-10-22] MED LIST changes: +Aspirin Chewable 81 MG TAB ONE; +Escitalopram Oxalate 10 mg Tablet PO SCH; +Iopamidol 370 76% 100 ML VIAL ONE; +Ipratropium/Albuterol 3 ML NEB ONE; -Sodium Chloride 0.9% 100 ML BAG ONE; +Sodium Chloride 0.9% 500 ML ONE; +methylPREDNISolone Sod Succ/PF 125 MG/2 ML VIAL ONE
[2022-10-22 14:07] LABS: #Basophils 0.1 thou/uL (0.0-0.2); #Eosinphils 0.1 thou/uL (0.0-0.7); #Lymphocytes 0.9 thou/uL (1.20-3.40); #Monocytes 0.5 thou/uL (0.11-0.59); #Neutrophils 14.9 thou/uL (1.40-6.50); %Basophils 0.7 % (0.0-1.0); %Eosinophils 0.3 % (0.0-10.0); %Lymphocytes 5.3 % (21.0-51.0); %Monocytes 2.8 % (0.0-10.0); %Neutrophils 90.8 % (42.0-75.0); Hemoglobin 12.5 g/dL (12.0-16.0); Mean Corpuscular HGB CONC 32.9 g/dL (32.0-36.0); Mean Corpuscular Hemoglobin 28.1 pg (27.0-31.0); Mean Corpuscular Volume 85.6 fl (78.0-98.0); Mean Platelet Volume 8.9 fL (7.4-10.4); Platelet Count 279 10x3/uL (130-400); RBC Distribution Width 13.5 % (11.5-14.5); Red Blood Cell (RBC) Count 4.45 mill/uL (4.20-5.40); White Blood Cell (WBC) Count 16.4 10x3/uL (4.8-10.8)
[2022-10-22 14:13] LABS: ALT (SGPT) 29 U/L (8-55); AST (SGOT) 27 U/L (5-34); Albumin 3.7 g/dL (3.4-4.8); Alkaline Phosphatase 87 U/L (40-110); Anion Gap 16 mmol/L (10-20); BUN (Urea Nitrogen) 13 mg/dL (9.8-20.1); Bilirubin, Total 0.5 mg/dL (0.2-1.2); Calc. Creatinine Clearance 0 mL/min (70-130); Calcium 9.4 mg/dL (7.8-10.44); Carbon Dioxide 30 mmol/L (23-31); Chloride 98 mmol/L (98-107); Estimated GFR 65; Glucose 116 mg/dL (83-110); Magnesium 2.1 mg/dL (1.6-2.6); Potassium 3.5 mmol/L (3.5-5.1); Protein, Total 6.7 g/dL (5.8-8.1); Sodium 140 mmol/L (136-145)
[2022-10-22 14:18] LABS: Base Excess-Venous 7.7 mmol/L (-2.0 to 3.0); Bicarbonate (HCO3v) 30.8 mmol/L (22.0-28.0); CO2 Tension (PvCO2) 37.1 mmHg (42.0-51.0); Calcium, Ionized 0.96 mmol/L (1.15-1.33); Chloride 99 mmol/L (98-107); Hemoglobin - Calc 14.5 g/dL (12.0-16.0); Potassium 3.4 mmol/L (3.5-5.1); Sodium 138 mmol/L (138-145); T. Carbon Dioxide 31.9 mmol/L (22.0-28.0); vO2 Saturation-calc 96.4 % (60.0-85.0)
[2022-10-22 17:07] LABS: SARS-CoV-2 NAA Rapid Test Not Detected (NotDetected)
== END ==
LOC: MADERS 13:11
DX: J44.1 Chronic obstructive pulmonary disease with (acute) exacerbation (principal); Z20.822 Contact with and (suspected) exposure to COVID-19; I25.10 Atherosclerotic heart disease of native coronary artery without angina pectoris; E78.00 Pure hypercholesterolemia, unspecified; I11.0 Hypertensive heart disease with heart failure; I50.9 Heart failure, unspecified; Z79.899 Other long term (current) drug therapy; Z79.82 Long term (current) use of aspirin; Z87.891 Personal history of nicotine dependence
CPT/HCPCS: 36415; 71045; 71275; 80053; 82330; 82803; 83605; 83690; 83735; 83880; 85014; 85025; 87040; 93005; 96374; 96376; J2930; J7030; J7620; Q9967

== ENCOUNTER 2022-12-28 17:19 | Inpatient (IN) | payer MEDICARE, OTHER ==
[2022-12-28] MEDS ORDERED: HYDROcodone/Acetaminophen 5/325 mg Tablet PO PRN ×2 (17:22→17:28)
[2022-12-28] MEDS ORDERED: Bisacodyl 5 MG TAB PO PRN (17:25)
[2022-12-28] MEDS ORDERED: Ondansetron ODT 4 MG TAB SL PRN (17:25)
[2022-12-28] MEDS ORDERED: Arformoterol 15 MCG/2 ML NEB NEB SCH (19:00)
[2022-12-28] MEDS ORDERED: Budesonide 0.5 MG/2 ML NEB NEB SCH (19:00)
[2022-12-28] MEDS ORDERED: Temazepam 15 MG CAP PO SCH (21:00)
[2022-12-28] MEDS: Rosuvastatin 10 MG TAB PO SCH (21:49)
[2022-12-28] MEDS: Famotidine 20 MG TAB PO SCH (21:49)
[2022-12-28] MEDS: Apixaban 5 MG TAB PO SCH (21:49)
[2022-12-28] MEDS: Nicotine 7 MG PATCH TD SCH (21:49)
[2022-12-28] MEDS: Ipratropium/Albuterol 3 ML NEB NEB SCH (21:52)
[2022-12-28] MEDS: Arformoterol 15 MCG/2 ML NEB NEB SCH (21:54)
[2022-12-28] MEDS: Budesonide 0.5 MG/2 ML NEB NEB SCH (21:55)
[2022-12-28] MEDS: Temazepam 15 MG CAP PO SCH (21:56)
[2022-12-28] MEDS: Senokot S 8.6-50 MG TAB PO PRN (23:01)
[2022-12-29] MEDS: Ipratropium/Albuterol 3 ML NEB NEB SCH ×6 (00:54→21:33)
[2022-12-29 06:01] LABS: ALT (SGPT) 63 U/L (8-55); AST (SGOT) 23 U/L (5-34); Albumin 3.3 g/dL (3.4-4.8); Alkaline Phosphatase 110 U/L (40-110); Anion Gap 10 mmol/L (10-20); BUN (Urea Nitrogen) 33 mg/dL (9.8-20.1); Bilirubin, Total 0.3 mg/dL (0.2-1.2); Calc. Creatinine Clearance 68 mL/min (70-130); Calcium 8.5 mg/dL (7.8-10.44); Carbon Dioxide 31 mmol/L (23-31); Chloride 105 mmol/L (98-107); Estimated GFR 73; Globulin 2.2 g/dL (2.4-3.5); Glucose 112 mg/dL (83-110); Potassium 3.5 mmol/L (3.5-5.1); Protein, Total 5.5 g/dL (5.8-8.1)
[2022-12-29 06:03] LABS: Band 1 % (5-11); Eosinophils 1 % (0-10); Hemoglobin 11.8 g/dL (12.0-16.0); Lymphocytes 4 % (21-51); MDiff Complete? YES; Mean Corpuscular HGB CONC 33.6 g/dL (32.0-36.0); Mean Corpuscular Hemoglobin 27.2 pg (27.0-31.0); Monocytes 7 % (0-10); Neutrophil 87 % (42-75); Platelet Count 209 10x3/uL (130-400); RBC Distribution Width 14.3 % (11.5-14.5); Red Blood Cell (RBC) Count 4.32 mill/uL (4.20-5.40); White Blood Cell (WBC) Count 26.5 10x3/uL (4.8-10.8)
[2022-12-29 06:08] LABS: Sodium 142 mmol/L (136-145)
[2022-12-29] MEDS ORDERED: Non-Formulary Item 1 EACH (Icosapent Ethyl 1 GM Capsule) PO SCH (08:00)
[2022-12-29] MEDS ORDERED: Diltiazem HCl SR 60 mg Capsule PO SCH (09:00)
[2022-12-29] MEDS ORDERED: DILTIAZEM HCL 300 MG PO SCH ×2 (09:00)
[2022-12-29] MEDS ORDERED: Non-Formulary Item 1 EACH (Losartan Potassium [Losartan Potassium] 100 MG Tablet) PO SCH (09:00)
[2022-12-29] MEDS ORDERED: Diltiazem HCl SR 90 mg Capsule PO SCH (09:00)
[2022-12-29] MEDS: Budesonide 0.5 MG/2 ML NEB NEB SCH ×2 (09:04→21:34)
[2022-12-29] MEDS: Arformoterol 15 MCG/2 ML NEB NEB SCH ×2 (09:04→21:32)
[2022-12-29] MEDS: Furosemide 20 MG TAB PO SCH (09:05)
[2022-12-29] MEDS: predniSONE 20 MG TAB PO SCH (09:05)
[2022-12-29] MEDS: Apixaban 5 MG TAB PO SCH ×2 (09:05→21:29)
[2022-12-29] MEDS: Escitalopram Oxalate 10 mg Tablet PO SCH (09:05)
[2022-12-29] MEDS: Famotidine 20 MG TAB PO SCH ×2 (09:05→21:29)
[2022-12-29] MEDS: Rosuvastatin 10 MG TAB PO SCH (21:29)
[2022-12-29] MEDS: Temazepam 15 MG CAP PO SCH (21:30)
[2022-12-29] MEDS: Senokot S 8.6-50 MG TAB PO PRN (21:39)
[2022-12-29] MEDS: Nicotine 7 MG PATCH TD SCH (21:39)
[2022-12-30] MEDS: Ipratropium/Albuterol 3 ML NEB NEB SCH ×6 (00:46→22:04)
[2022-12-30] MEDS: Apixaban 5 MG TAB PO SCH ×2 (08:52→22:03)
[2022-12-30] MEDS: Furosemide 20 MG TAB PO SCH (08:52)
[2022-12-30] MEDS: predniSONE 20 MG TAB PO SCH (08:52)
[2022-12-30] MEDS: Famotidine 20 MG TAB PO SCH ×2 (08:52→22:03)
[2022-12-30] MEDS: Acetaminophen 325 MG TAB PO PRN (08:53)
[2022-12-30] MEDS: Escitalopram Oxalate 10 mg Tablet PO SCH (08:53)
[2022-12-30] MEDS: Arformoterol 15 MCG/2 ML NEB NEB SCH ×2 (08:57→22:08)
[2022-12-30] MEDS: Budesonide 0.5 MG/2 ML NEB NEB SCH ×2 (08:59→22:09)
[2022-12-30] MEDS: Rosuvastatin 10 MG TAB PO SCH (22:02)
[2022-12-30] MEDS: Temazepam 15 MG CAP PO SCH (22:02)
[2022-12-30] MEDS: Nicotine 7 MG PATCH TD SCH (22:03)
[2022-12-31] MEDS: Ipratropium/Albuterol 3 ML NEB NEB SCH ×6 (00:44→23:47)
[2022-12-31] MEDS: Furosemide 20 MG TAB PO SCH (08:36)
[2022-12-31] MEDS: predniSONE 20 MG TAB PO SCH (08:36)
[2022-12-31] MEDS: Escitalopram Oxalate 10 mg Tablet PO SCH (08:36)
[2022-12-31] MEDS: Apixaban 5 MG TAB PO SCH ×2 (08:36→21:29)
[2022-12-31] MEDS: Arformoterol 15 MCG/2 ML NEB NEB SCH ×2 (08:37→21:47)
[2022-12-31] MEDS: Famotidine 20 MG TAB PO SCH ×2 (08:37→21:29)
[2022-12-31] MEDS: Budesonide 0.5 MG/2 ML NEB NEB SCH ×2 (08:37→21:31)
[2022-12-31 09:26] LABS: #Basophils 0.1 thou/uL (0.0-0.2); #Monocytes 0.8 thou/uL (0.11-0.59); #Neutrophils 21.7 thou/uL (1.40-6.50); %Basophils 0.5 % (0.0-1.0); %Eosinophils 0.1 % (0.0-10.0); %Lymphocytes 4.3 % (21.0-51.0); %Monocytes 3.5 % (0.0-10.0); %Neutrophils 91.7 % (42.0-75.0); Hemoglobin 11.1 g/dL (12.0-16.0); Mean Corpuscular HGB CONC 34.6 g/dL (32.0-36.0); Mean Corpuscular Hemoglobin 27.7 pg (27.0-31.0); Mean Corpuscular Volume 80.2 fl (78.0-98.0); Mean Platelet Volume 8.6 fL (7.4-10.4); Platelet Count 179 10x3/uL (130-400); RBC Distribution Width 14.5 % (11.5-14.5); Red Blood Cell (RBC) Count 3.99 mill/uL (4.20-5.40); White Blood Cell (WBC) Count 23.7 10x3/uL (4.8-10.8)
[2022-12-31 09:49] LABS: ALT (SGPT) 61 U/L (8-55); AST (SGOT) 27 U/L (5-34); Albumin 3.3 g/dL (3.4-4.8); Alkaline Phosphatase 102 U/L (40-110); Anion Gap 12 mmol/L (10-20); BUN (Urea Nitrogen) 20 mg/dL (9.8-20.1); Bilirubin, Total 0.3 mg/dL (0.2-1.2); Calc. Creatinine Clearance 77 mL/min (70-130); Calcium 8.2 mg/dL (7.8-10.44); Carbon Dioxide 29 mmol/L (23-31); Chloride 105 mmol/L (98-107); Estimated GFR 84; Glucose 91 mg/dL (83-110); Potassium 3.6 mmol/L (3.5-5.1); Protein, Total 5.3 g/dL (5.8-8.1); Sodium 142 mmol/L (136-145)
[2022-12-31] MEDS: Sodium Chloride 0.9% 1,000 ML IV SCH (15:32)
[2022-12-31] MEDS: ALPRAZolam 0.5 MG TAB PO PRN (20:01)
[2022-12-31] MEDS: Rosuvastatin 10 MG TAB PO SCH (21:30)
[2022-12-31] MEDS: Nicotine 7 MG PATCH TD SCH (21:30)
[2022-12-31] MEDS: Temazepam 15 MG CAP PO SCH (21:30)
[2023-01-01] MEDS: Ipratropium/Albuterol 3 ML NEB NEB SCH ×6 (00:56→21:26)
[2023-01-01] MEDS: Sodium Chloride 0.9% 1,000 ML IV SCH (04:35)
[2023-01-01] MEDS: Escitalopram Oxalate 10 mg Tablet PO SCH (08:45)
[2023-01-01] MEDS: Famotidine 20 MG TAB PO SCH ×2 (08:45→21:24)
[2023-01-01] MEDS: predniSONE 20 MG TAB PO SCH (08:45)
[2023-01-01] MEDS: Furosemide 20 MG TAB PO SCH (08:45)
[2023-01-01] MEDS: Arformoterol 15 MCG/2 ML NEB NEB SCH ×2 (08:46→21:30)
[2023-01-01] MEDS: Budesonide 0.5 MG/2 ML NEB NEB SCH ×2 (08:46→21:31)
[2023-01-01] MEDS: Apixaban 5 MG TAB PO SCH ×2 (08:46→21:25)
[2023-01-01 14:59] LABS: Base Excess (BEa) POC ABG 4.9 mmol/L (-2.0 to +3.0); Calcium, Ionized 1.09 mmol/L (1.15-1.33); Chloride POC ABG 100 mmol/L (98-107); Hematocrit POC ABG 33 % (38-51); Hemoglobin POC ABG 11.4 g/dL (12.0-17.0); O2 Saturation (calc) POC ABG 97.7 % (94.0-98.0); Potassium POC ABG 3.5 mmol/L (3.5-4.5); Sodium POC ABG 141 mmol/L (138-146); pH (Arterial) 7.438 (7.35-7.45)
[2023-01-01] MEDS: Temazepam 15 MG CAP PO SCH (21:25)
[2023-01-01] MEDS: Nicotine 7 MG PATCH TD SCH (21:38)
[2023-01-01] MEDS: Rosuvastatin 10 MG TAB PO SCH (21:38)
[2023-01-02] MEDS: Ipratropium/Albuterol 3 ML NEB NEB SCH ×6 (00:05→21:23)
[2023-01-02] MEDS: predniSONE 10 MG TAB PO SCH (08:55)
[2023-01-02] MEDS: Furosemide 20 MG TAB PO SCH (08:55)
[2023-01-02] MEDS: Apixaban 5 MG TAB PO SCH ×2 (08:55→21:21)
[2023-01-02] MEDS: Escitalopram Oxalate 10 mg Tablet PO SCH (08:56)
[2023-01-02] MEDS: Arformoterol 15 MCG/2 ML NEB NEB SCH ×2 (08:56→21:22)
[2023-01-02] MEDS: Budesonide 0.5 MG/2 ML NEB NEB SCH ×2 (08:57→21:21)
[2023-01-02] MEDS: Famotidine 20 MG TAB PO SCH ×2 (08:59→21:18)
[2023-01-02] MEDS: Carvedilol 6.25 MG TAB PO SCH (18:07)
[2023-01-02] MEDS: Rosuvastatin 10 MG TAB PO SCH (21:18)
[2023-01-02] MEDS: Nicotine 7 MG PATCH TD SCH (21:19)
[2023-01-02] MEDS: Temazepam 15 MG CAP PO SCH (21:19)
[2023-01-03] MEDS: Ipratropium/Albuterol 3 ML NEB NEB SCH ×6 (00:33→20:43)
[2023-01-03] MEDS: ALPRAZolam 0.5 MG TAB PO PRN (09:31)
[2023-01-03] MEDS: Furosemide 20 MG TAB PO SCH (09:32)
[2023-01-03] MEDS: predniSONE 10 MG TAB PO SCH (09:32)
[2023-01-03] MEDS: Apixaban 5 MG TAB PO SCH ×2 (09:32→20:42)
[2023-01-03] MEDS: Escitalopram Oxalate 10 mg Tablet PO SCH (09:32)
[2023-01-03] MEDS: Famotidine 20 MG TAB PO SCH ×2 (09:33→20:42)
[2023-01-03] MEDS: Carvedilol 6.25 MG TAB PO SCH ×2 (09:33→17:05)
[2023-01-03] MEDS: Budesonide 0.5 MG/2 ML NEB NEB SCH ×2 (09:33→20:42)
[2023-01-03] MEDS: Arformoterol 15 MCG/2 ML NEB NEB SCH ×2 (09:33→21:01)
[2023-01-03] MEDS: Temazepam 15 MG CAP PO SCH (20:41)
[2023-01-03] MEDS: Rosuvastatin 10 MG TAB PO SCH (20:42)
[2023-01-03] MEDS: Nicotine 7 MG PATCH TD SCH (21:00)
[2023-01-04] MEDS: Ipratropium/Albuterol 3 ML NEB NEB SCH ×4 (02:50→15:15)
[2023-01-04] MEDS: Carvedilol 6.25 MG TAB PO SCH ×2 (08:28→16:59)
[2023-01-04] MEDS: Furosemide 20 MG TAB PO SCH (08:29)
[2023-01-04] MEDS: predniSONE 10 MG TAB PO SCH (08:30)
[2023-01-04] MEDS: Apixaban 5 MG TAB PO SCH ×2 (08:30→21:54)
[2023-01-04] MEDS: Budesonide 0.5 MG/2 ML NEB NEB SCH ×2 (08:31→21:54)
[2023-01-04] MEDS: Arformoterol 15 MCG/2 ML NEB NEB SCH ×2 (08:31→21:54)
[2023-01-04] MEDS: Famotidine 20 MG TAB PO SCH ×2 (08:32→21:53)
[2023-01-04] MEDS: Escitalopram Oxalate 10 mg Tablet PO SCH (08:32)
[2023-01-04] MEDS: ALPRAZolam 0.5 MG TAB PO PRN (10:58)
[2023-01-04] MEDS ORDERED: Carvedilol 6.25 MG TAB PO SCH ×2 (13:15→21:45)
[2023-01-04] MEDS ORDERED: Furosemide 40 MG/4 ML VIAL SLOW IVP SCH (13:15)
[2023-01-04 14:57] LABS: Bilirubin Negative (Negative); Blood, Urine Trace (Negative); Clarity Clear (Clear); Glucose, Urine (Dipstick) 100 mg/dL (Negative); Ketone, Urine Negative (Negative); Leukocyte Negative (Negative); Nitrite Negative (Negative); Protein, Urine (Dipstick) Negative (Neg-Trace); Specific Gravity, Urine 1.025 (1.005-1.030); Urobilinogen 0.2 mg/dL (Less than 2); pH, Urine 5.5 (5.0-9.0)
[2023-01-04] MEDS ORDERED: Ipratropium Bromide 2.5 ml Neb NEB SCH ×2 (15:00→17:00)
[2023-01-04 15:20] LABS: Bacteria/HPF Rare-Few HPF (None Seen); Mucous/LPF Few LPF (<2+); RBC/HPF 0-3 HPF (0-3); Squamous Epithelial 0-3 HPF (0-3); WBC/HPF 0-3 HPF (0-3)
[2023-01-04] MEDS: predniSONE 20 MG TAB PO SCH (16:58)
[2023-01-04] MEDS ORDERED: ALPRAZolam 0.5 MG TAB PO PRN (19:16)
[2023-01-04] MEDS: Rosuvastatin 10 MG TAB PO SCH (21:53)
[2023-01-04] MEDS: Temazepam 15 MG CAP PO SCH (21:53)
[2023-01-05] MEDS: Ipratropium Bromide 2.5 ml Neb NEB SCH ×4 (00:18→21:14)
[2023-01-05] MEDS: Nicotine 7 MG PATCH TD SCH ×2 (00:18→21:48)
[2023-01-05] MEDS ORDERED: methylPREDNISolone Sod Succ/PF 125 MG/2 ML VIAL IVP SCH (09:00)
[2023-01-05] MEDS: Arformoterol 15 MCG/2 ML NEB NEB SCH ×2 (09:17→21:15)
[2023-01-05] MEDS: Budesonide 0.5 MG/2 ML NEB NEB SCH ×2 (09:26→21:15)
[2023-01-05] MEDS: Senokot S 8.6-50 MG TAB PO PRN (09:36)
[2023-01-05] MEDS: Carvedilol 6.25 MG TAB PO SCH ×2 (09:37→17:39)
[2023-01-05] MEDS: predniSONE 20 MG TAB PO SCH ×2 (09:38→17:39)
[2023-01-05] MEDS: Escitalopram Oxalate 10 mg Tablet PO SCH (09:38)
[2023-01-05] MEDS: Famotidine 20 MG TAB PO SCH ×2 (09:38→21:12)
[2023-01-05] MEDS: Apixaban 5 MG TAB PO SCH ×2 (09:38→21:13)
[2023-01-05] MEDS: Furosemide 20 MG TAB PO SCH (09:40)
[2023-01-05] MEDS ORDERED: Bisacodyl 10 MG SUPP PR PRN (16:58)
[2023-01-05] MEDS: Rosuvastatin 10 MG TAB PO SCH (21:12)
[2023-01-05] MEDS: Senokot S 8.6-50 MG TAB PO SCH (21:13)
[2023-01-05] MEDS: Temazepam 15 MG CAP PO SCH (21:13)
[2023-01-06] MEDS: Budesonide 0.5 MG/2 ML NEB NEB SCH ×2 (08:56→21:01)
[2023-01-06] MEDS: Arformoterol 15 MCG/2 ML NEB NEB SCH ×2 (09:07→21:10)
[2023-01-06] MEDS: Carvedilol 6.25 MG TAB PO SCH ×2 (09:16→17:39)
[2023-01-06] MEDS: Famotidine 20 MG TAB PO SCH ×2 (09:16→21:13)
[2023-01-06] MEDS: Apixaban 5 MG TAB PO SCH ×2 (09:16→21:15)
[2023-01-06] MEDS: Senokot S 8.6-50 MG TAB PO SCH ×2 (09:16→21:13)
[2023-01-06] MEDS: Escitalopram Oxalate 10 mg Tablet PO SCH (09:17)
[2023-01-06] MEDS: predniSONE 20 MG TAB PO SCH ×2 (09:17→17:39)
[2023-01-06] MEDS: Furosemide 20 MG TAB PO SCH (09:17)
[2023-01-06] MEDS: Ipratropium Bromide 2.5 ml Neb NEB SCH ×2 (09:18→21:13)
[2023-01-06] MEDS: Temazepam 15 MG CAP PO SCH (21:12)
[2023-01-06] MEDS: Rosuvastatin 10 MG TAB PO SCH (21:13)
[2023-01-06] MEDS: Nicotine 7 MG PATCH TD SCH (21:21)
[2023-01-07] MEDS: predniSONE 20 MG TAB PO SCH ×2 (09:49→17:20)
[2023-01-07] MEDS: Escitalopram Oxalate 10 mg Tablet PO SCH (09:49)
[2023-01-07] MEDS: Budesonide 0.5 MG/2 ML NEB NEB SCH ×2 (09:49→21:03)
[2023-01-07] MEDS: Carvedilol 6.25 MG TAB PO SCH (09:49)
[2023-01-07] MEDS: Famotidine 20 MG TAB PO SCH ×2 (09:50→20:59)
[2023-01-07] MEDS: Apixaban 5 MG TAB PO SCH ×2 (09:50→20:59)
[2023-01-07] MEDS: Senokot S 8.6-50 MG TAB PO SCH ×2 (09:50→21:00)
[2023-01-07] MEDS: Furosemide 20 MG TAB PO SCH (09:50)
[2023-01-07] MEDS: Ipratropium Bromide 2.5 ml Neb NEB SCH ×2 (09:51→21:05)
[2023-01-07] MEDS: Arformoterol 15 MCG/2 ML NEB NEB SCH ×2 (09:51→21:06)
[2023-01-07] MEDS ORDERED: Carvedilol 6.25 MG TAB PO SCH (13:30)
[2023-01-07] MEDS: Carvedilol 12.5 MG TAB PO SCH (17:20)
[2023-01-07] MEDS: Rosuvastatin 10 MG TAB PO SCH (21:00)
[2023-01-07] MEDS: Temazepam 15 MG CAP PO SCH (21:00)
[2023-01-07] MEDS: Nicotine 7 MG PATCH TD SCH (21:03)
[2023-01-08] MEDS: ALPRAZolam 0.25 MG TAB PO SCH ×2 (05:29→20:27)
[2023-01-08] MEDS ORDERED: HYDROcodone/Acetaminophen 5/325 mg Tablet PO PRN (06:51)
[2023-01-08 07:46] LABS: Anion Gap 15 mmol/L (10-20); BUN (Urea Nitrogen) 30 mg/dL (9.8-20.1); Calc. Creatinine Clearance 74 mL/min (70-130); Carbon Dioxide 28 mmol/L (23-31); Chloride 99 mmol/L (98-107); Potassium 3.5 mmol/L (3.5-5.1); Sodium 138 mmol/L (136-145)
[2023-01-08 07:47] LABS: Calcium 8.4 mg/dL (7.8-10.44); Estimated GFR 81; Glucose 127 mg/dL (83-110)
[2023-01-08] MEDS: Escitalopram Oxalate 10 mg Tablet PO SCH (08:59)
[2023-01-08] MEDS: Furosemide 40 MG TAB PO SCH (09:04)
[2023-01-08] MEDS: Famotidine 20 MG TAB PO SCH ×2 (09:04→20:28)
[2023-01-08] MEDS: Apixaban 5 MG TAB PO SCH ×2 (09:04→20:27)
[2023-01-08] MEDS: Senokot S 8.6-50 MG TAB PO SCH ×2 (09:04→20:30)
[2023-01-08] MEDS: Carvedilol 12.5 MG TAB PO SCH ×2 (09:04→17:35)
[2023-01-08] MEDS: predniSONE 20 MG TAB PO SCH (09:04)
[2023-01-08] MEDS: Budesonide 0.5 MG/2 ML NEB NEB SCH ×2 (09:04→20:28)
[2023-01-08] MEDS: Arformoterol 15 MCG/2 ML NEB NEB SCH ×2 (09:05→20:27)
[2023-01-08] MEDS: Ipratropium Bromide 2.5 ml Neb NEB SCH ×2 (09:05→20:29)
[2023-01-08 11:15] LABS: #Basophils 0.2 thou/uL (0.0-0.2); #Lymphocytes 0.3 thou/uL (1.20-3.40); #Monocytes 0.4 thou/uL (0.11-0.59); #Neutrophils 10.4 thou/uL (1.40-6.50); %Basophils 1.4 % (0.0-1.0); %Eosinophils 0.1 % (0.0-10.0); %Lymphocytes 2.3 % (21.0-51.0); %Monocytes 3.5 % (0.0-10.0); %Neutrophils 92.8 % (42.0-75.0); Hemoglobin 10.7 g/dL (12.0-16.0); Mean Corpuscular HGB CONC 31.6 g/dL (32.0-36.0); Mean Corpuscular Hemoglobin 27.8 pg (27.0-31.0); Mean Corpuscular Volume 87.9 fl (78.0-98.0); Mean Platelet Volume 9.1 fL (7.4-10.4); Platelet Count 157 10x3/uL (130-400); RBC Distribution Width 16.9 % (11.5-14.5); Red Blood Cell (RBC) Count 3.85 mill/uL (4.20-5.40); White Blood Cell (WBC) Count 11.2 10x3/uL (4.8-10.8)
[2023-01-08] MEDS: Rosuvastatin 10 MG TAB PO SCH (20:30)
[2023-01-08] MEDS: Nicotine 7 MG PATCH TD SCH (20:30)
[2023-01-08] MEDS: Temazepam 15 MG CAP PO SCH (20:30)
[2023-01-09] MEDS: ALPRAZolam 0.25 MG TAB PO SCH ×2 (05:31→21:03)
[2023-01-09] MEDS: Ipratropium Bromide 2.5 ml Neb NEB SCH ×2 (08:29→21:06)
[2023-01-09] MEDS: Budesonide 0.5 MG/2 ML NEB NEB SCH ×2 (08:29→21:07)
[2023-01-09] MEDS: Furosemide 40 MG TAB PO SCH (08:29)
[2023-01-09] MEDS: Arformoterol 15 MCG/2 ML NEB NEB SCH ×2 (08:29→21:06)
[2023-01-09] MEDS: predniSONE 20 MG TAB PO SCH (08:30)
[2023-01-09] MEDS: Apixaban 5 MG TAB PO SCH ×2 (08:31→21:06)
[2023-01-09] MEDS: Carvedilol 12.5 MG TAB PO SCH ×2 (08:31→17:45)
[2023-01-09] MEDS: Escitalopram Oxalate 10 mg Tablet PO SCH (08:32)
[2023-01-09] MEDS: Famotidine 20 MG TAB PO SCH ×2 (08:36→21:06)
[2023-01-09] MEDS: Senokot S 8.6-50 MG TAB PO SCH ×2 (08:36→21:06)
[2023-01-09] MEDS: Nicotine 7 MG PATCH TD SCH (21:02)
[2023-01-09] MEDS: Temazepam 15 MG CAP PO SCH (21:03)
[2023-01-09] MEDS: Rosuvastatin 10 MG TAB PO SCH (21:05)
[2023-01-10] MEDS: ALPRAZolam 0.25 MG TAB PO SCH ×2 (05:15→21:23)
[2023-01-10] MEDS: Carvedilol 12.5 MG TAB PO SCH ×2 (08:00→16:33)
[2023-01-10] MEDS: Arformoterol 15 MCG/2 ML NEB NEB SCH ×2 (09:01→21:21)
[2023-01-10] MEDS: Budesonide 0.5 MG/2 ML NEB NEB SCH ×2 (09:11→21:23)
[2023-01-10] MEDS: Escitalopram Oxalate 10 mg Tablet PO SCH (09:15)
[2023-01-10] MEDS: Apixaban 5 MG TAB PO SCH ×2 (09:15→21:19)
[2023-01-10] MEDS: Famotidine 20 MG TAB PO SCH ×2 (09:15→21:19)
[2023-01-10] MEDS: Furosemide 40 MG TAB PO SCH (09:15)
[2023-01-10] MEDS: predniSONE 20 MG TAB PO SCH (09:16)
[2023-01-10] MEDS: Ipratropium Bromide 2.5 ml Neb NEB SCH ×2 (09:16→21:31)
[2023-01-10] MEDS: Senokot S 8.6-50 MG TAB PO SCH ×2 (09:16→21:20)
[2023-01-10] MEDS: Temazepam 15 MG CAP PO SCH (21:19)
[2023-01-10] MEDS: Rosuvastatin 10 MG TAB PO SCH (21:19)
[2023-01-10] MEDS: Nicotine 7 MG PATCH TD SCH (21:31)
[2023-01-11] MEDS: ALPRAZolam 0.25 MG TAB PO SCH ×2 (05:19→20:33)
[2023-01-11] MEDS: Carvedilol 3.125 MG TAB PO SCH ×2 (08:00→17:22)
[2023-01-11] MEDS: Arformoterol 15 MCG/2 ML NEB NEB SCH ×2 (08:27→20:34)
[2023-01-11] MEDS: Budesonide 0.5 MG/2 ML NEB NEB SCH ×2 (08:27→20:38)
[2023-01-11] MEDS: Ipratropium Bromide 2.5 ml Neb NEB SCH ×2 (08:27→20:43)
[2023-01-11] MEDS: Escitalopram Oxalate 10 mg Tablet PO SCH (08:28)
[2023-01-11] MEDS: Apixaban 5 MG TAB PO SCH ×2 (08:28→20:33)
[2023-01-11] MEDS: Carvedilol 12.5 MG TAB PO SCH (08:28)
[2023-01-11] MEDS: Senokot S 8.6-50 MG TAB PO SCH ×2 (08:28→20:33)
[2023-01-11] MEDS: Furosemide 40 MG TAB PO SCH (08:29)
[2023-01-11] MEDS: predniSONE 20 MG TAB PO SCH (08:29)
[2023-01-11] MEDS: Famotidine 20 MG TAB PO SCH ×2 (08:29→20:33)
[2023-01-11] MEDS: Rosuvastatin 10 MG TAB PO SCH (20:33)
[2023-01-11] MEDS: Temazepam 15 MG CAP PO SCH (20:34)
[2023-01-11] MEDS: Nicotine 7 MG PATCH TD SCH (21:00)
[2023-01-12] MEDS: ALPRAZolam 0.25 MG TAB PO SCH ×2 (05:49→21:43)
[2023-01-12] MEDS: Carvedilol 3.125 MG TAB PO SCH ×2 (08:36→17:13)
[2023-01-12] MEDS: predniSONE 10 MG TAB PO SCH (08:36)
[2023-01-12] MEDS: Escitalopram Oxalate 10 mg Tablet PO SCH (08:37)
[2023-01-12] MEDS: Apixaban 5 MG TAB PO SCH ×2 (08:37→21:43)
[2023-01-12] MEDS: Senokot S 8.6-50 MG TAB PO SCH ×2 (08:38→21:43)
[2023-01-12] MEDS: Budesonide 0.5 MG/2 ML NEB NEB SCH ×2 (08:38→21:50)
[2023-01-12] MEDS: Ipratropium Bromide 2.5 ml Neb NEB SCH ×2 (08:38→21:48)
[2023-01-12] MEDS: Furosemide 40 MG TAB PO SCH (08:38)
[2023-01-12] MEDS: Famotidine 20 MG TAB PO SCH ×2 (08:38→21:43)
[2023-01-12] MEDS: Arformoterol 15 MCG/2 ML NEB NEB SCH ×2 (08:39→21:49)
[2023-01-12] MEDS: Rosuvastatin 10 MG TAB PO SCH (21:42)
[2023-01-12] MEDS: Temazepam 15 MG CAP PO SCH (21:43)
[2023-01-12] MEDS: Nicotine 7 MG PATCH TD SCH (21:54)
[2023-01-13] MEDS: ALPRAZolam 0.25 MG TAB PO SCH ×2 (05:20→20:57)
[2023-01-13 08:36] LABS: Bilirubin Negative (Negative); Blood, Urine Trace (Negative); Glucose, Urine (Dipstick) Negative (Negative); Ketone, Urine Negative (Negative); Leukocyte Negative (Negative); Nitrite Negative (Negative); Protein, Urine (Dipstick) Negative (Neg-Trace); Urobilinogen 0.2 mg/dL (Less than 2)
[2023-01-13 08:45] LABS: Clarity Hazy (Clear); RBC/HPF 0-3 HPF (0-3); WBC/HPF 0-3 HPF (0-3)
[2023-01-13 08:46] LABS: Bacteria/HPF 1+ HPF (None Seen); Squamous Epithelial 0-3 HPF (0-3); Yeast-Budding 1+ HPF (None Seen)
[2023-01-13] MEDS: Apixaban 5 MG TAB PO SCH ×2 (09:20→20:57)
[2023-01-13] MEDS: predniSONE 10 MG TAB PO SCH (09:20)
[2023-01-13] MEDS: Carvedilol 3.125 MG TAB PO SCH ×2 (09:20→16:55)
[2023-01-13] MEDS: Famotidine 20 MG TAB PO SCH ×2 (09:21→20:57)
[2023-01-13] MEDS: Furosemide 40 MG TAB PO SCH (09:21)
[2023-01-13] MEDS: Senokot S 8.6-50 MG TAB PO SCH ×2 (09:21→21:15)
[2023-01-13] MEDS: Budesonide 0.5 MG/2 ML NEB NEB SCH ×2 (09:21→21:08)
[2023-01-13] MEDS: Escitalopram Oxalate 10 mg Tablet PO SCH (09:21)
[2023-01-13] MEDS: Arformoterol 15 MCG/2 ML NEB NEB SCH ×2 (09:22→20:58)
[2023-01-13] MEDS: Ipratropium Bromide 2.5 ml Neb NEB SCH ×2 (09:22→21:15)
[2023-01-13] MEDS: Rosuvastatin 10 MG TAB PO SCH (20:57)
[2023-01-13] MEDS: Temazepam 15 MG CAP PO SCH (20:57)
[2023-01-13] MEDS: Nicotine 7 MG PATCH TD SCH (21:13)
[2023-01-14] MEDS: ALPRAZolam 0.25 MG TAB PO SCH ×2 (05:19→21:35)
[2023-01-14] MEDS: Arformoterol 15 MCG/2 ML NEB NEB SCH ×2 (08:23→21:36)
[2023-01-14] MEDS: Ipratropium Bromide 2.5 ml Neb NEB SCH ×2 (08:23→21:40)
[2023-01-14] MEDS: Budesonide 0.5 MG/2 ML NEB NEB SCH ×2 (08:24→21:41)
[2023-01-14] MEDS: Senokot S 8.6-50 MG TAB PO SCH ×2 (08:26→21:36)
[2023-01-14] MEDS: Carvedilol 3.125 MG TAB PO SCH ×2 (08:27→17:09)
[2023-01-14] MEDS: Escitalopram Oxalate 10 mg Tablet PO SCH (08:27)
[2023-01-14] MEDS: predniSONE 10 MG TAB PO SCH (08:27)
[2023-01-14] MEDS: Famotidine 20 MG TAB PO SCH ×2 (08:27→21:36)
[2023-01-14] MEDS: Furosemide 40 MG TAB PO SCH (08:28)
[2023-01-14] MEDS: Apixaban 5 MG TAB PO SCH ×2 (08:28→21:36)
[2023-01-14] MEDS: Temazepam 15 MG CAP PO SCH (21:35)
[2023-01-14] MEDS: Rosuvastatin 10 MG TAB PO SCH (21:35)
[2023-01-14] MEDS: Nicotine 7 MG PATCH TD SCH (21:36)
[2023-01-14] MEDS: Lantiseptic Ointment 130 GM JAR TOP PRN (21:47)
[2023-01-15 05:28] LABS: Hemoglobin 10.5 g/dL (12.0-16.0); Platelet Count 230 10x3/uL (130-400)
[2023-01-15] MEDS: ALPRAZolam 0.25 MG TAB PO SCH ×2 (05:39→20:37)
[2023-01-15] MEDS: Ipratropium Bromide 2.5 ml Neb NEB SCH ×2 (08:23→20:49)
[2023-01-15] MEDS: Apixaban 5 MG TAB PO SCH ×2 (08:24→20:47)
[2023-01-15] MEDS: Escitalopram Oxalate 10 mg Tablet PO SCH (08:24)
[2023-01-15] MEDS: predniSONE 5 MG TAB PO SCH (08:25)
[2023-01-15] MEDS: Furosemide 40 MG TAB PO SCH (08:25)
[2023-01-15] MEDS: Famotidine 20 MG TAB PO SCH ×2 (08:26→20:50)
[2023-01-15] MEDS: Carvedilol 3.125 MG TAB PO SCH ×2 (08:26→17:13)
[2023-01-15] MEDS: Arformoterol 15 MCG/2 ML NEB NEB SCH ×2 (08:27→20:47)
[2023-01-15] MEDS: Senokot S 8.6-50 MG TAB PO SCH ×2 (08:28→20:47)
[2023-01-15] MEDS: Budesonide 0.5 MG/2 ML NEB NEB SCH ×2 (08:29→20:48)
[2023-01-15] MEDS ORDERED: Activated Charcoal/Sorbitol 25 GM/120 ML TUBE ONE (09:13)
[2023-01-15] MEDS: Acetaminophen 325 MG TAB PO PRN (11:39)
[2023-01-15] MEDS: Nicotine 7 MG PATCH TD SCH (20:47)
[2023-01-15] MEDS: Temazepam 15 MG CAP PO SCH (20:47)
[2023-01-15] MEDS: Rosuvastatin 10 MG TAB PO SCH (20:47)
[2023-01-15] MEDS: Lantiseptic Ointment 130 GM JAR TOP PRN (20:52)
[2023-01-16] MEDS: Acetaminophen 325 MG TAB PO PRN (01:56)
[2023-01-16 03:28] LABS: Bilirubin Negative (Negative); Blood, Urine Large (Negative); Clarity Cloudy (Clear); Glucose, Urine (Dipstick) Negative (Negative); Ketone, Urine Trace mg/dL (Negative); Leukocyte Negative (Negative); Nitrite Negative (Negative); Protein, Urine (Dipstick) 100 mg/dL (Neg-Trace); Urobilinogen 0.2 mg/dL (Less than 2)
[2023-01-16 03:34] LABS: Bacteria/HPF None Seen HPF (None Seen); CAUTI Indications for Culture Fever or rigors; RBC/HPF Greater than 50 HPF (0-3); Squamous Epithelial 0-3 HPF (0-3); Transitional Epithelial None Seen HPF (None Seen)
[2023-01-16 03:35] LABS: Urine Culture Reflex No No
[2023-01-16 04:09] VITALS: BMI 30.7
[2023-01-16] MEDS: ALPRAZolam 0.25 MG TAB PO SCH ×2 (06:19→21:50)
[2023-01-16] MEDS: Budesonide 0.5 MG/2 ML NEB NEB SCH ×2 (08:54→21:52)
[2023-01-16] MEDS: Carvedilol 3.125 MG TAB PO SCH ×2 (08:58→18:13)
[2023-01-16] MEDS: Arformoterol 15 MCG/2 ML NEB NEB SCH ×2 (08:58→21:51)
[2023-01-16] MEDS: Ipratropium Bromide 2.5 ml Neb NEB SCH ×2 (08:59→21:53)
[2023-01-16 09:30] LABS: #Basophils 0.1 thou/uL (0.0-0.2); #Lymphocytes 0.7 thou/uL (1.20-3.40); #Monocytes 0.6 thou/uL (0.11-0.59); #Neutrophils 4.7 thou/uL (1.40-6.50); %Basophils 1.1 % (0.0-1.0); %Lymphocytes 12.1 % (21.0-51.0); %Monocytes 9.4 % (0.0-10.0); %Neutrophils 77.4 % (42.0-75.0); Hemoglobin 11.1 g/dL (12.0-16.0); Mean Corpuscular Hemoglobin 27.7 pg (27.0-31.0); Mean Corpuscular Volume 86.8 fl (78.0-98.0); Mean Platelet Volume 8.6 fL (7.4-10.4); Platelet Count 269 10x3/uL (130-400); RBC Distribution Width 16.7 % (11.5-14.5); Red Blood Cell (RBC) Count 4.01 mill/uL (4.20-5.40); White Blood Cell (WBC) Count 6.1 10x3/uL (4.8-10.8)
[2023-01-16 09:49] LABS: ALT (SGPT) 33 U/L (8-55); AST (SGOT) 16 U/L (5-34); Albumin 2.8 g/dL (3.4-4.8); Alkaline Phosphatase 77 U/L (40-110); Anion Gap 12 mmol/L (10-20); BUN (Urea Nitrogen) 10 mg/dL (9.8-20.1); Bilirubin, Total 0.4 mg/dL (0.2-1.2); Calc. Creatinine Clearance 76 mL/min (70-130); Calcium 8.5 mg/dL (7.8-10.44); Carbon Dioxide 36 mmol/L (23-31); Chloride 94 mmol/L (98-107); Estimated GFR 85; Globulin 2.3 g/dL (2.4-3.5); Glucose 94 mg/dL (83-110); Protein, Total 5.1 g/dL (5.8-8.1); Sodium 140 mmol/L (136-145)
[2023-01-16 09:53] LABS: Potassium 2.3 mmol/L (3.5-5.1)
[2023-01-16] MEDS: Furosemide 40 MG TAB PO SCH (10:15)
[2023-01-16] MEDS: Escitalopram Oxalate 10 mg Tablet PO SCH (10:33)
[2023-01-16] MEDS: Senokot S 8.6-50 MG TAB PO SCH ×2 (10:34→21:50)
[2023-01-16] MEDS: Apixaban 5 MG TAB PO SCH ×2 (10:34→21:50)
[2023-01-16] MEDS: predniSONE 10 MG TAB PO SCH (10:34)
[2023-01-16] MEDS: Famotidine 20 MG TAB PO SCH ×2 (10:34→21:50)
[2023-01-16] MEDS ORDERED: Potassium Chloride 20 MEQ in Premix Bag 1 BAG IVPB SCH (11:15)
[2023-01-16] MEDS ORDERED: Potassium Chloride 20 MEQ/100 ML PREMIX BAG ONE (11:24)
[2023-01-16] MEDS: cefTRIAXone\\ROCEPHIN 2 GM in Sodium Chloride 0.9% 100 ML IVPB SCH (13:55)
[2023-01-16] MEDS: metroNIDAZOLE 500 MG in Premix Bag 1 BAG IVPB SCH ×2 (13:56→21:49)
[2023-01-16] MEDS: Potassium Chloride 20 MEQ TAB PO SCH (18:09)
[2023-01-16] MEDS: Rosuvastatin 10 MG TAB PO SCH (21:48)
[2023-01-16] MEDS: Temazepam 15 MG CAP PO SCH (21:49)
[2023-01-16] MEDS: Nicotine 7 MG PATCH TD SCH (21:50)
[2023-01-16] MEDS: Lantiseptic Ointment 130 GM JAR TOP PRN (21:55)
[2023-01-17] MEDS: metroNIDAZOLE 500 MG in Premix Bag 1 BAG IVPB SCH ×3 (06:07→21:08)
[2023-01-17] MEDS: ALPRAZolam 0.25 MG TAB PO SCH (06:09)
[2023-01-17 07:43] LABS: Anion Gap 15 mmol/L (10-20); BUN (Urea Nitrogen) 12 mg/dL (9.8-20.1); Calc. Creatinine Clearance 72 mL/min (70-130); Calcium 8.5 mg/dL (7.8-10.44); Carbon Dioxide 31 mmol/L (23-31); Chloride 94 mmol/L (98-107); Estimated GFR 80; Glucose 97 mg/dL (83-110); Potassium 2.9 mmol/L (3.5-5.1); Sodium 137 mmol/L (136-145)
[2023-01-17] MEDS: Arformoterol 15 MCG/2 ML NEB NEB SCH ×2 (08:32→21:04)
[2023-01-17] MEDS: Budesonide 0.5 MG/2 ML NEB NEB SCH ×2 (08:32→21:04)
[2023-01-17] MEDS: Ipratropium Bromide 2.5 ml Neb NEB SCH ×2 (08:32→21:15)
[2023-01-17] MEDS: Apixaban 5 MG TAB PO SCH ×2 (08:34→21:05)
[2023-01-17] MEDS: Potassium Chloride 20 MEQ TAB PO SCH ×2 (08:34→17:17)
[2023-01-17] MEDS: Escitalopram Oxalate 10 mg Tablet PO SCH (08:34)
[2023-01-17] MEDS: predniSONE 5 MG TAB PO SCH (08:34)
[2023-01-17] MEDS: Famotidine 20 MG TAB PO SCH ×2 (08:34→21:05)
[2023-01-17] MEDS: Senokot S 8.6-50 MG TAB PO SCH ×2 (08:34→21:09)
[2023-01-17] MEDS: Furosemide 40 MG TAB PO SCH (08:34)
[2023-01-17] MEDS: Carvedilol 3.125 MG TAB PO SCH ×2 (08:34→17:17)
[2023-01-17] MEDS: cefTRIAXone\\ROCEPHIN 2 GM in Sodium Chloride 0.9% 100 ML IVPB SCH (12:06)
[2023-01-17] MEDS: Temazepam 15 MG CAP PO SCH (21:04)
[2023-01-17] MEDS: Rosuvastatin 10 MG TAB PO SCH (21:04)
[2023-01-17] MEDS: Nicotine 7 MG PATCH TD SCH (21:06)
[2023-01-18] MEDS: metroNIDAZOLE 500 MG in Premix Bag 1 BAG IVPB SCH ×3 (05:57→22:18)
[2023-01-18] MEDS: Budesonide 0.5 MG/2 ML NEB NEB SCH ×2 (08:29→22:01)
[2023-01-18] MEDS: Arformoterol 15 MCG/2 ML NEB NEB SCH ×2 (08:30→22:06)
[2023-01-18] MEDS: Ipratropium Bromide 2.5 ml Neb NEB SCH ×2 (08:30→22:08)
[2023-01-18] MEDS: Escitalopram Oxalate 10 mg Tablet PO SCH (08:32)
[2023-01-18] MEDS: Potassium Chloride 20 MEQ TAB PO SCH ×2 (08:32→17:24)
[2023-01-18] MEDS: Apixaban 5 MG TAB PO SCH ×2 (08:32→22:03)
[2023-01-18] MEDS: Furosemide 40 MG TAB PO SCH (08:32)
[2023-01-18] MEDS: predniSONE 10 MG TAB PO SCH (08:32)
[2023-01-18] MEDS: Famotidine 20 MG TAB PO SCH ×2 (08:33→22:03)
[2023-01-18] MEDS: Carvedilol 3.125 MG TAB PO SCH ×2 (08:34→17:24)
[2023-01-18] MEDS: Senokot S 8.6-50 MG TAB PO SCH ×2 (08:34→22:03)
[2023-01-18 10:38] LABS: Anion Gap 15 mmol/L (10-20); BUN (Urea Nitrogen) 13 mg/dL (9.8-20.1); Calc. Creatinine Clearance 66 mL/min (70-130); Carbon Dioxide 31 mmol/L (23-31); Chloride 95 mmol/L (98-107); Estimated GFR 72; Glucose 135 mg/dL (83-110); Potassium 2.8 mmol/L (3.5-5.1); Sodium 138 mmol/L (136-145)
[2023-01-18] MEDS: cefTRIAXone\\ROCEPHIN 2 GM in Sodium Chloride 0.9% 100 ML IVPB SCH (12:35)
[2023-01-18] MEDS: Rosuvastatin 10 MG TAB PO SCH (22:02)
[2023-01-18] MEDS: Nicotine 7 MG PATCH TD SCH (22:04)
[2023-01-19] MEDS: metroNIDAZOLE 500 MG in Premix Bag 1 BAG IVPB SCH ×3 (06:03→22:10)
[2023-01-19] MEDS: predniSONE 5 MG TAB PO SCH (08:34)
[2023-01-19] MEDS: Potassium Chloride 20 MEQ TAB PO SCH ×2 (08:34→17:05)
[2023-01-19] MEDS: Carvedilol 3.125 MG TAB PO SCH ×2 (08:35→17:05)
[2023-01-19] MEDS: Famotidine 20 MG TAB PO SCH ×2 (08:35→20:51)
[2023-01-19] MEDS: Furosemide 40 MG TAB PO SCH (08:35)
[2023-01-19] MEDS: Escitalopram Oxalate 10 mg Tablet PO SCH (08:35)
[2023-01-19] MEDS: Apixaban 5 MG TAB PO SCH ×2 (08:35→20:51)
[2023-01-19] MEDS: Ipratropium Bromide 2.5 ml Neb NEB SCH ×2 (08:36→20:54)
[2023-01-19] MEDS: Budesonide 0.5 MG/2 ML NEB NEB SCH ×2 (08:36→20:55)
[2023-01-19] MEDS: Arformoterol 15 MCG/2 ML NEB NEB SCH ×2 (08:37→20:51)
[2023-01-19] MEDS: cefTRIAXone\\ROCEPHIN 2 GM in Sodium Chloride 0.9% 100 ML IVPB SCH (11:30)
[2023-01-19] MEDS ORDERED: clonazePAM 0.5 MG TAB PO SCH (17:00)
[2023-01-19] MEDS: Temazepam 15 MG CAP PO SCH (20:50)
[2023-01-19] MEDS: Rosuvastatin 10 MG TAB PO SCH (20:51)
[2023-01-19] MEDS: Senokot S 8.6-50 MG TAB PO SCH (21:01)
[2023-01-19] MEDS: Nicotine 7 MG PATCH TD SCH (22:09)
[2023-01-20 05:47] LABS: Anisocytosis SLIGHT = 6-15 cells (100X) (0-5/hpf); Band 2 % (5-11); Eosinophils 2 % (0-10); Hemoglobin 10.8 g/dL (12.0-16.0); Lymphocytes 7 % (21-51); MDiff Complete? YES; Mean Corpuscular HGB CONC 31.2 g/dL (32.0-36.0); Mean Corpuscular Hemoglobin 27.4 pg (27.0-31.0); Mean Corpuscular Volume 87.8 fl (78.0-98.0); Mean Platelet Volume 9.4 fL (7.4-10.4); Monocytes 3 % (0-10); Neutrophil 86 % (42-75); Ovalocytes SLIGHT = 2-5 cells (100X) (0-1/hpf); Platelet Count 307 10x3/uL (130-400); Platelet Morphology Comment Appears Adequate; RBC Distribution Width 16.7 % (11.5-14.5); Red Blood Cell (RBC) Count 3.94 mill/uL (4.20-5.40); Tear Drops SLIGHT = 2-5 cells (100X) (0-1/hpf); White Blood Cell (WBC) Count 10.8 10x3/uL (4.8-10.8)
[2023-01-20 05:51] LABS: ALT (SGPT) 17 U/L (8-55); AST (SGOT) 13 U/L (5-34); Alkaline Phosphatase 80 U/L (40-110); Anion Gap 15 mmol/L (10-20); BUN (Urea Nitrogen) 11 mg/dL (9.8-20.1); Bilirubin, Total 0.2 mg/dL (0.2-1.2); Calc. Creatinine Clearance 68 mL/min (70-130); Calcium 9.1 mg/dL (7.8-10.44); Carbon Dioxide 32 mmol/L (23-31); Chloride 95 mmol/L (98-107); Estimated GFR 74; Globulin 2.7 g/dL (2.4-3.5); Glucose 102 mg/dL (83-110); Potassium 3.3 mmol/L (3.5-5.1); Protein, Total 5.7 g/dL (5.8-8.1); Sodium 139 mmol/L (136-145)
[2023-01-20] MEDS: clonazePAM 0.5 MG TAB PO SCH (05:57)
[2023-01-20] MEDS: metroNIDAZOLE 500 MG in Premix Bag 1 BAG IVPB SCH ×3 (05:58→22:08)
[2023-01-20] MEDS: Apixaban 5 MG TAB PO SCH ×2 (09:18→22:01)
[2023-01-20] MEDS: Carvedilol 3.125 MG TAB PO SCH ×2 (09:18→16:09)
[2023-01-20] MEDS: Potassium Chloride 20 MEQ TAB PO SCH ×2 (09:18→16:09)
[2023-01-20] MEDS: Arformoterol 15 MCG/2 ML NEB NEB SCH ×4 (09:18→22:05)
[2023-01-20] MEDS: Budesonide 0.5 MG/2 ML NEB NEB SCH ×2 (09:19→21:53)
[2023-01-20] MEDS: Escitalopram Oxalate 10 mg Tablet PO SCH (09:20)
[2023-01-20] MEDS: Furosemide 40 MG TAB PO SCH (09:21)
[2023-01-20] MEDS: Famotidine 20 MG TAB PO SCH ×2 (09:21→22:01)
[2023-01-20] MEDS: Ipratropium Bromide 2.5 ml Neb NEB SCH ×2 (09:21→22:01)
[2023-01-20] MEDS: predniSONE 10 MG TAB PO SCH (09:22)
[2023-01-20] MEDS: Senokot S 8.6-50 MG TAB PO SCH ×2 (09:22→21:56)
[2023-01-20] MEDS: cefTRIAXone\\ROCEPHIN 2 GM in Sodium Chloride 0.9% 100 ML IVPB SCH (11:56)
[2023-01-20] MEDS ORDERED: Albuterol 200 PUFF (6.7GM INHALER) INH PRN (13:02)
[2023-01-20] MEDS: Nicotine 7 MG PATCH TD SCH (21:56)
[2023-01-20] MEDS: Temazepam 15 MG CAP PO SCH (22:01)
[2023-01-20] MEDS: Rosuvastatin 10 MG TAB PO SCH (22:09)
[2023-01-21] MEDS: clonazePAM 0.5 MG TAB PO SCH (05:32)
[2023-01-21] MEDS: metroNIDAZOLE 500 MG in Premix Bag 1 BAG IVPB SCH ×3 (05:33→22:43)
[2023-01-21] MEDS: Apixaban 5 MG TAB PO SCH ×2 (09:36→22:43)
[2023-01-21] MEDS: Furosemide 40 MG TAB PO SCH (09:36)
[2023-01-21] MEDS: Senokot S 8.6-50 MG TAB PO SCH ×2 (09:36→22:48)
[2023-01-21] MEDS: Escitalopram Oxalate 10 mg Tablet PO SCH (09:36)
[2023-01-21] MEDS: Famotidine 20 MG TAB PO SCH ×2 (09:36→22:42)
[2023-01-21] MEDS: Carvedilol 3.125 MG TAB PO SCH (09:36)
[2023-01-21] MEDS: Potassium Chloride 20 MEQ TAB PO SCH ×2 (09:37→17:40)
[2023-01-21] MEDS: predniSONE 5 MG TAB PO SCH (09:37)
[2023-01-21] MEDS: Ipratropium Bromide 2.5 ml Neb NEB SCH ×2 (09:38→22:47)
[2023-01-21] MEDS: Budesonide 0.5 MG/2 ML NEB NEB SCH ×2 (09:38→22:48)
[2023-01-21] MEDS: Arformoterol 15 MCG/2 ML NEB NEB SCH (09:40)
[2023-01-21] MEDS: cefTRIAXone\\ROCEPHIN 2 GM in Sodium Chloride 0.9% 100 ML IVPB SCH (12:18)
[2023-01-21] MEDS ORDERED: Carvedilol 6.25 MG TAB PO SCH (17:00)
[2023-01-21 20:38] VITALS: TEMP 98
[2023-01-21] MEDS ORDERED: Arformoterol 15 MCG/2 ML NEB NEB SCH (21:00)
[2023-01-21] MEDS: Temazepam 15 MG CAP PO SCH (22:42)
[2023-01-21] MEDS: Rosuvastatin 10 MG TAB PO SCH (22:42)
[2023-01-21] MEDS: Nicotine 7 MG PATCH TD SCH (22:48)
[2023-01-22 01:18] VITALS: BP 106/69
[2023-01-22] MEDS ORDERED: Escitalopram Oxalate 10 mg Tablet PO SCH (09:00)
[2023-01-22] MEDS ORDERED: clonazePAM 0.5 MG TAB PO SCH (17:00)
== END 2023-01-22 01:10 | DRG 947 ==
LOC: MADMS 18:26
PROVIDERS: ADMIT Family Medicine; ATTEND Family Medicine
PROC: 4A133R1 Monitoring of Arterial Saturation, Peripheral, Percutaneous Approach (ICD-10-PCS; principal; 2022-12-28)
DX: R53.81 Other malaise (principal); J18.9 Pneumonia, unspecified organism; J96.11 Chronic respiratory failure with hypoxia; N17.9 Acute kidney failure, unspecified; R53.1 Weakness; J44.9 Chronic obstructive pulmonary disease, unspecified; I48.91 Unspecified atrial fibrillation; I25.10 Atherosclerotic heart disease of native coronary artery without angina pectoris; Z66 Do not resuscitate; N18.9 Chronic kidney disease, unspecified; I12.9 Hypertensive chronic kidney disease with stage 1 through stage 4 chronic kidney disease, or unspecified chronic kidney disease; E78.5 Hyperlipidemia, unspecified; R33.9 Retention of urine, unspecified; Z96.0 Presence of urogenital implants; F41.9 Anxiety disorder, unspecified; F32.A Depression, unspecified; Z96.652 Presence of left artificial knee joint; Z82.49 Family history of ischemic heart disease and other diseases of the circulatory system; Z88.0 Allergy status to penicillin; Z99.81 Dependence on supplemental oxygen; Z90.49 Acquired absence of other specified parts of digestive tract; Z90.710 Acquired absence of both cervix and uterus; Z79.01 Long term (current) use of anticoagulants; Z79.899 Other long term (current) drug therapy
CPT/HCPCS: 36415; 71045; 80048; 80053; 81001; 81003; 81015; 82330; 82435; 82565; 82803; 83605; 83880; 84132; 84295; 85014; 85018; 85025; 85049; 87040; 87086; 94640; J0696; J3480; J3490; J7050; J7512; J7612; J7620; J7626